=== PATIENT | female | born 1955 | race Caucasian/White ===

== ENCOUNTER 2021-08-23 14:26 | Inpatient (IN) ==
[2021-08-23] MEDS ORDERED: SODIUM CHLORIDE 0.9% 1000ML 1,000 ML IV ONE (14:59)
[2021-08-23 15:16] LABS: Basophils # (auto) 0.05 K/uL (0-0.2); Basophils % (auto) 0.6 %; Eosinophils # (auto) 0.22 K/uL (0-0.5); Eosinophils % (auto) 2.5 %; Hemoglobin 12.3 g/dL (12.0-16.0); Immature Granulocytes # (auto) 0.01 K/uL (0.00-0.02); Immature Granulocytes % (auto) 0.1 %; Lymphocytes # (auto) 2.62 K/uL (1.2-3.4); Lymphocytes % (auto) 30.2 %; Mean Corpuscular Hemoglobin 31.1 pg (25-34); Mean Corpuscular Hgb Conc 31.5 g/dL (32-36); Mean Corpuscular Volume 98.5 fL (80-100); Mean Platelet Volume 9.3 fL (7.4-10.4); Monocytes # (auto) 0.61 K/uL (0.11-0.59); Neutrophils # (auto) 5.16 K/uL (1.4-6.5); Neutrophils % (auto) 59.6 %; Platelet Count 280 K/uL (130-400); RDW Coefficient of Variation 12.9 % (11.5-14.5); RDW Standard Deviation 46.5 fL (36.4-46.3); Red Blood Count 3.96 M/uL (4.2-5.4); White Blood Count 8.67 K/uL (4.8-10.8)
[2021-08-23 15:24] LABS: Alanine Aminotransferase 28 U/L (12-78); Albumin Level 3.5 gm/dl (3.4-5.0); Aspartate Aminotransferase 15 U/L (15-37); BUN Creatinine Ratio 11.1 (10-20); Bilirubin Direct 0.2 mg/dl (0-0.2); Blood Urea Nitrogen 13 mg/dl (7-18); Calcium 8.5 mg/dl (8.5-10.1); Carbon Dioxide 30 mmol/L (21-32); Chloride 109 mmol/L (98-107); Creatinine Clr Calc Pharmacy 40.7 ml/min; Est GFR (African American) 57.4 ml/min; Est GFR (Non-African American) 49.6 ml/min; Glucose 89 mg/dl (70-99); Lipase 60 U/L (73-393); Magnesium 2.5 mg/dl (1.8-2.4); Potassium 4.1 mmol/L (3.5-5.1); Sodium 143 mmol/L (136-145)
[2021-08-23 15:26] LABS: Partial Thromboplastin Ratio 0.9; Partial Thromboplastin Time 24.2 Seconds (21.0-31.0); Prothrombin Time 10.3 Seconds (9.0-12.0)
[2021-08-23 15:33] LABS: Albumin Globulin Ratio 1.1 (0.9-2); Alkaline Phosphatase 74 U/L (45-117); Bilirubin,Total 0.7 mg/dl (0.2-1); Creatine Kinase 67 U/L (26-192); Globulin 3.1 gm/dl (2.5-4.0); Phosphorus 3.7 mg/dl (2.5-4.9); Total Protein 6.6 gm/dl (6.4-8.2); Troponin I < 0.015 ng/ml (0-0.045)
--- NOTE | 2021-08-23 15:44 | XRay Report ---
XR chest 1V portable HISTORY: 65 years-old Female Chest Pain . Acute atypical chest pain COMPARISON: None TECHNIQUE: Portable supine AP view of the chest FINDINGS: Cardiomediastinal and hilar silhouettes are within normal limits. No pneumothorax, pleural effusion, airspace consolidation or overt pulmonary edema. Degenerative changes of the shoulders and spine. Sub acute to chronic appearing lateral right-sided rib fractures. IMPRESSION: No acute process. ACT 112: Negative or not required by law. The above report was generated using voice recognition software. It may contain grammatical, syntax o r spelling errors. Electronically signed by: Anthony Blanton M.D. 08/23/2021 3:42 PM
[2021-08-23] MEDS ORDERED: OPTIRAY 320 125ml IV ONE (15:58)
--- NOTE | 2021-08-23 16:32 | CT Scan Report ---
CT head/brain wo con CLINICAL HISTORY: 65 years-old Female with confusion, R weakness, vasc dementia. Acutely altered men ramya status TECHNIQUE: Multiple axial CT images of the head were obtained without contrast. A dose lowering tech nique was utilized adhering to the principles of ALARA. COMPARISON: CTA head and neck of same day FINDINGS: No acute intracranial hemorrhage, midline shift, intracranial mass, hydrocephalus, territorial ischem ia or abnormal extra-axial collection. Extensive white matter hypodensities chronic appearing lacunar infarcts of the bloom radiata and basal ganglia. Senescent calcifications of the lentiform nuclei. Mildly motion degraded exam. The calvarium is intact. Prior bilateral lens repair. The paranasal sinuses, mastoid air cells, and m iddle ear cavities are clear. IMPRESSION: 1. No acute intracranial abnormality. 2. Extensive white matter hypodensities suggestive of chronic microvascular ischemic disease with chr onic appearing lacunar infarcts of the basal ganglia. ACT 112: Negative or not required by law. The above report was generated using voice recognition software. It may contain grammatical, syntax o r spelling errors. Electronically signed by: Anthony Blanton M.D. 08/23/2021 4:31 PM
--- NOTE | 2021-08-23 16:45 | CT Scan Report ---
CT angio neck with con, CT angio head w con CLINICAL HISTORY: 65 years-old Female with confusion, R weakness, vasc dementia. Acute confusion w ith strokelike symptoms COMPARISON STUDY: Head CT of same day TECHNIQUE: Following the IV administration of 120 mL of Optiray, CT angiogram of the head and neck wa s performed from the aortic arch to the skull base. Images are reviewed in the axial, sagittal, and c oronal planes. 3-D MIPS images are created and assessed. IV contrast was administered without complic ation. All measurements were calculated based on NASCET criteria. A dose lowering technique was util ized adhering to the principles of ALARA. CT DOSE: 994.53 mGy.cm FINDINGS: Three-vessel morphology of the thoracic aortic arch. Patency of the innominate and imaged subclavian arteries. The common carotid arteries are widely patent. Study is motion degraded. Moderate atheroscl erotic plaque of the left carotid bulb results in less than 50% luminal narrowing. The bilateral inte rnal carotid arteries are otherwise widely patent. Atherosclerotic plaque of the cavernous and suprac linoid segments. The middle and anterior cerebral arteries are patent. Dominant right vertebral arter y. The vertebral, basilar and posterior cerebral arteries are patent. origin of the left security coordinator ior cerebral artery. High-grade stenosis of the left P2 segment on image 80 series 5 with moderate angelito moni narrowing of the P2 segment right posterior cerebral artery on image 77. The cerebral venous si nuses are patent. There is no abnormal intracranial enhancement. Lung apices are clear. Unremarkable soft tissues. Degenerative changes of the spine. IMPRESSION: 1. High-grade stenosis of the P2 segment left posterior cerebral artery with moderate stenosis on the right. 2. Atherosclerotic plaque of the left carotid bulb results in less than 50% luminal narrowing. 3. Otherwise unremarkable CTA of the head and neck. ACT 112: Negative or not required by law. The above report was generated using voice recognition software. It may contain grammatical, syntax o r spelling errors. Electronically signed by: Anthony Blanton M.D. 08/23/2021 4:44 PM
[2021-08-23 16:51] LABS: Appearance Urine Cloudy (Clear); Bacteria Urine Automated Negative (Negative); Bilirubin Urine Negative (Negative); Blood Urine 3+ (Negative); Color Urine Yellow; Glucose Urine UA Negative (Negative); Ketones Urine Negative (Negative); Leukocyte Esterase Urine 1+ (Negative); Nitrite Urine Negative (Negative); RBC Urine Automated >30 /hpf (0-4); Specific Gravity Urine 1.021 (1.000-1.030); Urobilinogen Urine Negative (Negative); WBC Urine Automated >30 /hpf (0-5); pH Urine 8.5 (4.5-7.5)
[2021-08-23 16:57] LABS: Protein Urine 1+ (Negative)
[2021-08-23] MEDS ORDERED: cefTRIAXone SODIUM 1,000 MG/50 ML BAG IV STA (17:07)
--- NOTE | 2021-08-23 18:56 | History & Physical Report ---
Date of Service August 23, 2021 Assessment & Plan (1) UTI (urinary tract infection): (2) Ambulatory dysfunction: Plan: -admit to med/surg with tele -patient presenting from home after a fall and being found on the floor by her daughter -patient with underlying CADASIL and waxing and waning weakness. Currently no focal deficits noted on exam -UA suggetive of UTI. Does not appear septic -s/p ceftriaxone in the ED, continue with, adjust per culture results -PT/OT evals (3) CADASIL (cerebral autosomal dominant arteriopathy with subcortical infarcts and leukoencephalopathy): Plan: -has underlying weakness that waxes and wanes, seems to be close to baseline -head CT negative for acute findings. head/neck CTA shows High-grade stenosis of the P2 segment left posterior cerebral artery with moderate stenosis on the right, atherosclerotic plaque of the left carotid bulb results in less than 50% luminal narrowing -Given atherosclerotic changes noted on CTA head and neck, will start aspirin, increase home atorvastatin to 80 mg -continue amantadine, amitriptyline, bupropion, duloxetine -Neuro consult, input appreciated (4) Abnormal EKG: Plan: -EKG shows T wave inversions in the lateral leads, no prior available for comparison -No reports of chest pain, initial troponin negative -Starting aspirin and increasing statin as above -Continue serial cardiac enzymes (5) HTN (hypertension): Plan: -BP controlled, continue metoprolol (6) DVT prophylaxis: Plan: -SQ Lovenox Admission and Anticipated Discharge Date Admission Date: I have seen and examined the patient and have discussed the case with the provider above. I agree with the assessment and plan as stated. 65 yo F reporting a fall at home and "bladder pain" for many months. She believes she is in [facility] but is conversing quite well and is not exhibiting signs of delirium. She is ill-appearing and generally weak. She cannot sit up in bed without assistance and ambulates with a walker at baseline. Physical exam with normal heart and lungs and normal benign, soft, ND abdomen. Cont abx as above in addition to cardiac investigation with abnormal EKG and risk factors for CAD such as active smoking. She does also have high grade stenosis in her cerebral arteries ans athero plaque in her carotids. Appreciate neuro evaluation and recommendations in am. DO Charles History of Present Illness Chief Complaint: Weakness, fall Primary Care Provider: Yohannes Preciado 65-year-old female with PMH CADASIL, HTN, and other problems listed below who presents the ED for evaluation of weakness and fall. Patient has some underlying cognitive impairment and history is limited from her. She has difficulty focusing. She reports that she was trying to get something out of the refrigerator and while she was bending over, she fell to the floor. She reports that her daughter came home from work about 10 to 15 minutes later and found her on the floor. Patient has baseline weakness from underlying CADASIL and daughter felt like her weakness was worse than baseline. EMS was called and patient was brought to the ED for further evaluation. Patient reports she has been having some bladder pain and dysuria for the past few days. She denies fevers and chills. No abdominal pain, nausea, vomiting, diarrhea. She denies lightheadedness, dizziness, diaphoresis, syncopal events. No chest pain or shortness of breath. In the ED, patient is hemodynamically stable. UA is suggestive of UTI. Head CT shows chronic changes. Head and neck CTA shows high-grade stenosis of the P2 segment left posterior cerebral artery with moderate stenosis on the right, atherosclerotic plaque of the left carotid bulb results in less than 50% luminal narrowing. Patient was given IVF and IV ceftriaxone. Allergies Allergy/AdvReac Type Severity Reaction Status Date / Time amoxicillin Allergy Intermediate Rash Verified 08/23/21 16:56 Home Medications Medication Instructions Recorded Confirmed Type amantadine HCl 100 mg capsule 100 mg PO DAILY 08/23/21 08/23/21 History amitriptyline 50 mg tablet 50 mg PO HS 08/23/21 08/23/21 History atorvastatin 10 mg tablet 10 mg PO HS 08/23/21 08/23/21 History bupropion HCl 150 mg 24 hr tablet, 150 mg PO DAILY 08/23/21 08/23/21 History extended release cholecalciferol (vitamin D3) 125 125 mcg PO DAILY 08/23/21 08/23/21 History mcg (5,000 unit) capsule duloxetine 60 mg capsule,delayed 60 mg PO DAILY 08/23/21 08/23/21 History release magnesium oxide 500 mg capsule 500 mg PO DAILY 08/23/21 08/23/21 History metoprolol succinate 25 mg 25 mg PO DAILY 09/25/21 09/25/21 History tablet,extended release 24 hr Past Med/Surg History Medical History CADASIL (cerebral autosomal dominant arteriopathy with subcortical infarcts and leukoencephalopathy) Degenerative joint disease HTN (hypertension) Hyperthyroidism Spinal stenosis Surgical History No significant past surgical history Family History Other Family history non-contributory Social History (Updated 08/23/21 @ 18:53 by ANKIT Garcia) Smoking Status: Current every day smoker Hx Alcohol Use: No Review of Systems Review of Systems: ROS per HPI, all other systems reviewed and negative Physical Exam Constitutional: WD/WN, vitals as above Eyes: PERRL, conjunctivae normal, anicteric sclerae ENMT: external ear and nose normal, oropharynx normal Respiratory: normal respiratory effort, lungs clear to auscultation Cardiovascular: Rate/Rhythm: regular rate and regular rhythm Vessels: normal peripheral pulses Extremities: no edema Gastrointestinal (Abdomen): normal bowel sounds, soft, nontender, no hepatosplenomegaly Musculoskeletal: Extremities: no cyanosis and no clubbing strength 4/5 throughout Skin: no rashes, warm and dry Neurologic: moves all extremities and awake; no focal motor deficits Speech / Cognition: + abnormal speech (mild dysarthria, at baseline) Cranial Nerves: PERRL, normal accommodation, EOM intact bilaterally and normal facial strength Psychiatric: Orientation: alert, oriented to person and oriented to place; + not oriented to time Insight: + limited insight Results & Data Results & Data ([facility]) Vital Signs (Past 12 Hours) Vital Signs Temp Pulse Resp BP Pulse Ox 08/23/21 18:00 58 L 16 168/96 H 95 08/23/21 17:30 56 L 17 158/100 H 96 08/23/21 17:03 56 L 17 161/96 H 98 08/23/21 16:30 59 L 17 94 08/23/21 16:07 61 21 08/23/21 15:30 60 18 125/80 98 08/23/21 15:01 59 L 15 123/82 08/23/21 14:34 36.7 C 61 16 146/90 H 98 Laboratory Results Short CBC 08/23/21 Range/Units 14:34 WBC 8.67 (4.8-10.8) K/uL Hgb 12.3 (12.0-16.0) g/dL Hct 39.0 (37-47) % Plt Count 280 (130-400) K/uL BMP 08/23/21 14:34 Sodium 143 Potassium 4.1 Chloride 109 H Carbon Dioxide 30 BUN 13 Creatinine 1.17 Glucose 89 Calcium 8.5 Cardiac Enzymes 08/23/21 Range/Units 14:34 Total Creatine Kinase 67 (26-192) U/L Troponin I < 0.015 (0-0.045) ng/ml Liver Function 08/23/21 Range/Units 14:34 Total Bilirubin 0.7 (0.2-1) mg/dl Direct Bilirubin 0.2 (0-0.2) mg/dl AST 15 (15-37) U/L ALT 28 (12-78) U/L Alkaline Phosphatase 74 (45-117) U/L Albumin 3.5 (3.4-5.0) gm/dl Urine 08/23/21 Range/Units 16:35 Urine Color Yellow Urine Appearance Cloudy A (Clear) Urine pH 8.5 H (4.5-7.5) Ur Specific Hiller 1.021 (1.000-1.030) Urine Protein 1+ H (Negative) Urine Glucose (UA) Negative (Negative) Diagnostic Findings Chest X-Ray 08/23/21 15:00 XR chest 1V portable HISTORY: 65 years-old Female Chest Pain . Acute atypical chest pain COMPARISON: None TECHNIQUE: Portable supine AP view of the chest FINDINGS: Cardiomediastinal and hilar silhouettes are within normal limits. No pneumothorax, pleural effusion, airspace consolidation or overt pulmonary edema. Degenerative changes of the shoulders and spine. Subacute to chronic appearing lateral right-sided rib fractures. IMPRESSION: No acute process. ACT 112: Negative or not required by law. The above report was generated using voice recognition software. It may contain grammatical, syntax or spelling errors. Electronically signed by: Anthony Blanton M.D. 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 Acutely altered mental status TECHNIQUE: Multiple axial CT images of the head were obtained without contrast. A dose lowering technique was utilized adhering to the principles of ALARA. COMPARISON: CTA head and neck of same day FINDINGS: No acute intracranial hemorrhage, midline shift, intracranial mass, hydrocephalus, territorial ischemia or abnormal extra-axial collection. Extensive white matter hypodensities chronic appearing lacunar infarcts of the bloom radiata and basal ganglia. Senescent calcifications of the lentiform nuclei. Mildly motion degraded exam. The calvarium is intact. Prior bilateral lens repair. The paranasal sinuses, mastoid air cells, and middle ear cavities are clear. IMPRESSION: 1. No acute intracranial abnormality. 2. Extensive white matter hypodensities suggestive of chronic microvascular ischemic disease with chronic appearing lacunar infarcts of the basal ganglia. ACT 112: Negative or not required by law. The above report was generated using voice recognition software. It may contain grammatical, syntax or spelling errors. Electronically signed by: Anthony Blanton M.D. 08/23/2021 4:31 PM Head CTA 08/23/21 15:01 CT angio neck with con, CT angio head w con CLINICAL HISTORY: 65 years-old Female with confusion, R weakness, vasc dementia. Acute confusion with strokelike symptoms COMPARISON STUDY: Head CT of same day TECHNIQUE: Following the IV administration of 120 mL of Optiray, CT angiogram of the head and neck was performed from the aortic arch to the skull base. Images are reviewed in the axial, sagittal, and coronal planes. 3-D MIPS images are created and assessed. IV contrast was administered without complication. All measurements were calculated based on NASCET criteria. A dose lowering technique was utilized adhering to the principles of ALARA. CT DOSE: 994.53 mGy.cm FINDINGS: Three-vessel morphology of the thoracic aortic arch. Patency of the innominate and imaged subclavian arteries. The common carotid arteries are widely patent. Study is motion degraded. Moderate atherosclerotic plaque of the left carotid bulb results in less than 50% luminal narrowing. The bilateral internal carotid arteries are otherwise widely patent. Atherosclerotic plaque of the cavernous and supraclinoid segments. The middle and anterior cerebral arteries are patent. Dominant right vertebral artery. The vertebral, basilar and posterior cerebral arteries are patent. origin of the left posterior cerebral artery. High- grade stenosis of the left P2 segment on image 80 series 5 with moderate luminal narrowing of the P2 segment right posterior cerebral artery on image 77. The cerebral venous sinuses are patent. There is no abnormal intracranial enhancement. Lung apices are clear. Unremarkable soft tissues. Degenerative changes of the spine. IMPRESSION: 1. High-grade stenosis of the P2 segment left posterior cerebral artery with moderate stenosis on the right. 2. Atherosclerotic plaque of the left carotid bulb results in less than 50% luminal narrowing. 3. Otherwise unremarkable CTA of the head and neck. ACT 112: Negative or not required by law. The above report was generated using voice recognition software. It may contain grammatical, syntax or spelling errors. Electronically signed by: Anthony Blanton M.D. 08/23/2021 4:44 PM Neck CTA 08/23/21 15:01 CT angio neck with con, CT angio head w con CLINICAL HISTORY: 65 years-old Female with confusion, R weakness, vasc dementia. Acute confusion with strokelike symptoms COMPARISON STUDY: Head CT of same day TECHNIQUE: Following the IV administration of 120 mL of Optiray, CT angiogram of the head and neck was performed from the aortic arch to the skull base. Images are reviewed in the axial, sagittal, and coronal planes. 3-D MIPS images are created and assessed. IV contrast was administered without complication. All measurements were calculated based on NASCET criteria. A dose lowering technique was utilized adhering to the principles of ALARA. CT DOSE: 994.53 mGy.cm FINDINGS: Three-vessel morphology of the thoracic aortic arch. Patency of the innominate and imaged subclavian arteries. The common carotid arteries are widely patent. Study is motion degraded. Moderate atherosclerotic plaque of the left carotid bulb results in less than 50% luminal narrowing. The bilateral internal carotid arteries are otherwise widely patent. Atherosclerotic plaque of the cavernous and supraclinoid segments. The middle and anterior cerebral arteries are patent. Dominant right vertebral artery. The vertebral, basilar and posterior cerebral arteries are patent. origin of the left posterior cerebral artery. High- grade stenosis of the left P2 segment on image 80 series 5 with moderate luminal narrowing of the P2 segment right posterior cerebral artery on image 77. The cerebral venous sinuses are patent. There is no abnormal intracranial enhancement. Lung apices are clear. Unremarkable soft tissues. Degenerative changes of the spine. IMPRESSION: 1. High-grade stenosis of the P2 segment left posterior cerebral artery with moderate stenosis on the right. 2. Atherosclerotic plaque of the left carotid bulb results in less than 50% luminal narrowing. 3. Otherwise unremarkable CTA of the head and neck. ACT 112: Negative or not required by law. The above report was generated using voice recognition software. It may contain grammatical, syntax or spelling errors. Electronically signed by: Anthony Blanton M.D. 08/23/2021 4:44 PM Code Status & VTE Plan VTE Prophylaxis Plan VTE Prophylaxis will be ordered: Yes
--- NOTE | 2021-08-23 21:08 | Emergency Department Note ---
Impression & Plan CADASIL (cerebral autosomal dominant arteriopathy with subcortical infarcts and leukoencephalopathy), UTI (urinary tract infection), Ambulatory dysfunction, Fall ED Provider Note NAME: ANGUS ARROYO AGE: 65 SEX: F ARRIVES VIA: Ambulance INFORMANT: Patient, ED PROVIDER(S): Devin Green MD CHIEF COMPLAINT: Fall, Stroke symptoms x 2 days PLAN: Disposition: Admit MEDICAL DECISION MAKING: The patient is a pleasant 65 y/o woman with a pmhx of CADASIL who presents to the emergency department accompanied by her daughter for evaluation after an unwittnessed fall when she found her mother on the ground this morning in the setting of the patient's daughter reporting increased right sided weakness from baseline right sided weakness and worsened ambulatory dysfunction, which she reports occurs when she has flares of her stroke symptoms 2/2 to her CADASIL. She reports with follows with Dr. Perez, [facility] neurology. They deny any fevers, chills, cough congestion, n/v/d. She reports having increased bladder pain for the past couple of days she feels may be a UTI. On arrival the patient is in NAD, AFVSS. She appears clinically dry. Speech is mild dysarthric. RUE/RLE 4/5 strength. LUE/LLE 4+/5 strength. Mild suprapubic te nderness. EKG without overt acute ischemia. CXR negative for acute cardiopulmonary process . WBC, H/H, platelets wnl. Chemistry without acidosis. Electrolytes unremarkable. LFTs without significant abnormality. Troponin negative/undetectable. TSH wnl. UA is suspicious for infection. CTX ordered. Covid-[address] head demonstrates extensive white matter hypodensities suggestive of chronic microvascular ischemic disease with chronic appearing lacunar infarcts of the basal ganglia. CTA fo head and neck demonstrates high-grade stenosis of the P2 segment left posterior cerebral artery with moderate stenosis on the right. Left carotid bulb with less than 50% luminal narrowing. Given the patient's worsening neurologic symptoms from baseline resulting in her unwittness fall the patient and her daughter agree with plan for admission. Case was discussed with [place] Nieves, with Dr. Charles Lujan hospitalist who will evaluate the patient for admission. Triage Nursing notes reviewed and agree them. Prior medical records reviewed Vital Signs: reviewed and remarkable for no significant abnormalities Differential diagnosis: Infection, dehydration, metabolic abnormality, hypo/hyperglycemia, electrolyte disturbance, anemia, hypoxia, cardiac sources, intracerebral event, toxicologic, neurologic, as well as other pathologies. ER treatment provided: See below. Diagnostics interpreted by me: ECG: NSR, 60 bpm, no ectopy, no overt ST elevation or depression. Cardiac Monitoring: An order for continuous cardiac monitoring was placed and demonstrated NSR, 60 bpm, no ectopy. Laboratory studies: See below Imaging studies: See below Consultation(s): Case was discussed with Le Nieves, with Dr. Charles Lujan hospitalist who will evaluate the patient for admission. HPI: The patient is a pleasant 65 y/o woman with a pmhx of CADASIL who presents to the emergency department accompanied by her daughter for evaluation after an unwittnessed fall when she found her mother on the ground this morning in the setting of the patient's daughter reporting increased right sided weakness from baseline right sided weakness and worsened ambulatory dysfunction, which she rep orts occurs when she has flares of her stroke symptoms 2/2 to her CADASIL. She reports with follows with Dr. Perez, [facility] neurology. They deny any fevers, chills, cough congestion, n/v/d. She reports having increased bladder pain for the past couple of days she feels may be a UTI. ROS: See above HPI for pertinent positives & negatives. A total of 10 systems reviewed and were otherwise negative. PAST MEDICAL HISTORY:See Below PAST SURGICAL HISTORY:See Below FAMILY HISTORY:See Below SOCIAL HISTORY:See Below HOME MEDICATIONS:See Below ALLERGIES:See Below VITALS:See Below PHYSICAL EXAMINATION: GENERAL: Awake, alert, fatigued-appearing, in no distress HENT: Normocephalic, atraumatic. Oropharynx with dry mucous membranes and otherwise unremarkable. EYES: Normal conjunctiva. Sclera non-icteric. EOMI. No nystamgus. PEARRL. NECK: Supple. No nuchal rigidity. FROM. No JVD. RESPIRATORY: Clear to auscultation. CARDIAC: Regular rate, normal rhythm. Extremities warm and well perfused. Pulses equal. ABDOMEN: Soft, non-distended. Mild suprapubic tenderness. No rebound or guarding. No masses. RECTAL: Deferred. MUSCULOSKELETAL: Chest examination reveals no tenderness. The back is symmetrical on inspection without obvious abnormality. There is no CVA tenderness to palpation. No joint edema. LOWER EXTREMITIES: Calves are equal size bilaterally and non-tender. No edema. No discoloration. NEURO: Speech is mild dysarthric. RUE/RLE 4/5 strength. LUE/LLE 4+/5 strength. SKIN: No rash or jaundice noted. Devin Green MD Past Med/Surg History Medical History CADASIL (cerebral autosomal dominant arteriopathy with subcortical infarcts and leukoencephalopathy) Degenerative joint disease HTN (hypertension) Hyperthyroidism Spinal stenosis Surgical History No significant past surgical history Family History Other Family history non-contributory Social History Smoking Status: Current every day smoker Hx Alcohol Use: No Allergies Allergies Allergy/AdvReac Type Severity Reaction Status Date / Time amoxicillin Allergy Intermediate Rash Verified 08/23/21 16:56 Home Meds Home Medications Medication Instructions Recorded Confirmed amantadine HCl 100 mg capsule 100 mg PO DAILY 08/23/21 08/23/21 amitriptyline 50 mg tablet 50 mg PO HS 08/23/21 08/23/21 atorvastatin 10 mg tablet 10 mg PO HS 08/23/21 08/23/21 bupropion HCl 150 mg 24 hr tablet, 150 mg PO DAILY 08/23/21 08/23/21 extended release cholecalciferol (vitamin D3) 125 125 mcg PO DAILY 08/23/21 08/23/21 mcg (5,000 unit) capsule duloxetine 60 mg capsule,delayed 60 mg PO DAILY 08/23/21 08/23/21 release magnesium oxide 500 mg capsule 500 mg PO DAILY 08/23/21 08/23/21 metoprolol succinate 25 mg 25 mg PO DAILY 08/23/21 08/23/21 tablet,extended release 24 hr Results & Data (ED) Vital Signs Vital Signs - 24 hr 08/23/21 14:34 08/23/21 15:01 08/23/21 15:30 Temperature 36.7 C Temperature Source Oral Pulse Rate 61 59 L 60 Pulse Rate from SpO2 Sensor 60 Pulse Rhythm Respiratory Rate 16 15 18 Respiratory Effort / Characteristics Non-Labored Respiratory Depth Normal Blood Pressure 146/90 H 123/82 125/80 Blood Pressure Mean 108 95 95 Pulse Oximetry 98 98 Oxygen Delivery Method Room Air Sepsis Recent Fever Within 48 Hours No Sepsis New/Unexplained Change in Mental Status No Sepsis Action Taken by Nursing No Action Required 08/23/21 15:37 08/23/21 16:07 08/23/21 16:30 Temperature Temperature Source Pulse Rate 61 59 L Pulse Rate from SpO2 Sensor 58 L Pulse Rhythm Regular Respiratory Rate 21 17 Respiratory Effort / Characteristics Respiratory Depth Blood Pressure Blood Pressure Mean Pulse Oximetry 94 Oxygen Delivery Method Room Air Sepsis Recent Fever Within 48 Hours Sepsis New/Unexplained Change in Mental Status Sepsis Action Taken by Nursing 08/23/21 17:03 08/23/21 17:30 08/23/21 18:00 Temperature Temperature Source Pulse Rate 56 L 56 L 58 L Pulse Rate from SpO2 Sensor 57 L 56 L 58 L Pulse Rhythm Respiratory Rate 17 17 16 Respiratory Effort / Characteristics Respiratory Depth Blood Pressure 161/96 H 158/100 H 168/96 H Blood Pressure Mean 117 119 120 Pulse Oximetry 98 96 95 Oxygen Delivery Method Sepsis Recent Fever Within 48 Hours Sepsis New/Unexplained Change in Mental Status Sepsis Action Taken by Nursing Laboratory Data Result diagrams: 08/23/21 14:34 08/23/21 14:34 Lab Results 08/23/21 08/23/21 08/23/21 Range/Units 14:34 14:34 14:34 WBC 8.67 (4.8-10.8) K/uL RBC 3.96 L (4.2-5.4) M/uL Hgb 12.3 (12.0-16.0) g/dL Hct 39.0 (37-47) % MCV 98.5 (80-100) fL MCH 31.1 (25-34) pg MCHC 31.5 L (32-36) g/dL RDW Std Deviation 46.5 H (36.4-46.3) fL RDW Coeff of Kong 12.9 (11.5-14.5) % Plt Count 280 (130-400) K/uL MPV 9.3 (7.4-10.4) fL Immature Gran % (Auto) 0.1 % Neut % (Auto) 59.6 % Lymph % (Auto) 30.2 % Blaine % (Auto) 7.0 % Eos % (Auto) 2.5 % Baso % (Auto) 0.6 % Neut # (Auto) 5.16 (1.4-6.5) K/uL Lymph # (Auto) 2.62 (1.2-3.4) K/uL Blaine # (Auto) 0.61 H (0.11-0.59) K/uL Eos # (Auto) 0.22 (0-0.5) K/uL Baso # (Auto) 0.05 (0-0.2) K/uL Immature Gran # (Auto) 0.01 (0.00-0.02) K/uL PT 10.3 (9.0-12.0) Seconds INR 1.0 (0.9-1.1) APTT 24.2 (21.0-31.0) Seconds PTT Ratio 0.9 Sodium 143 (136-145) mmol/L Potassium 4.1 (3.5-5.1) mmol/L Chloride 109 H (98-107) mmol/L Carbon Dioxide 30 (21-32) mmol/L Anion Gap 4.0 (3-11) BUN 13 (7-18) mg/dl Creatinine 1.17 (0.6-1.2) mg/dl Est Cr Clr Drug Dosing 40.7 ml/min Est GFR ( Amer) 57.4 ml/min Est GFR (Non-Af Amer) 49.6 ml/min BUN/Creatinine Ratio 11.1 (10-20) Glucose 89 (70-99) mg/dl POC Glucose (70-99) mg/dl Calcium 8.5 (8.5-10.1) mg/dl Phosphorus 3.7 (2.5-4.9) mg/dl Magnesium 2.5 H (1.8-2.4) mg/dl Total Bilirubin 0.7 (0.2-1) mg/dl Direct Bilirubin 0.2 (0-0.2) mg/dl AST 15 (15-37) U/L ALT 28 (12-78) U/L Alkaline Phosphatase 74 (45-117) U/L Total Creatine Kinase 67 (26-192) U/L Troponin I < 0.015 (0-0.045) ng/ml Total Protein 6.6 (6.4-8.2) gm/dl Albumin 3.5 (3.4-5.0) gm/dl Globulin 3.1 (2.5-4.0) gm/dl Albumin/Globulin Ratio 1.1 (0.9-2) Lipase 60 L (73-393) U/L TSH 1.320 (0.300-4.500) uIu/ml Urine Color Urine Appearance (Clear) Urine pH (4.5-7.5) Ur Specific [place] (1.000-1.030) Urine Protein (Negative) Urine Glucose (UA) (Negative) Urine Ketones (Negative) Urine Blood (Negative) Urine Nitrite (Negative) Urine Bilirubin (Negative) Urine Urobilinogen (Negative) Ur Leukocyte Esterase (Negative) Urine WBC (Auto) (0-5) /hpf Urine RBC (Auto) (0-4) /hpf U Hyaline Cast (Auto) (0-5) /lpf U Epithel Cells (Auto) (0-5) /lpf Urine Bacteria (Auto) (Negative) COVID-19 Eval Order SARS-CoV-2 (PCR) (Negative) 08/23/21 08/23/21 08/23/21 Range/Units 14:40 14:41 15:37 WBC (4.8-10.8) K/uL RBC (4.2-5.4) M/uL Hgb (12.0-16.0) g/dL Hct (37-47) % MCV (80-100) fL MCH (25-34) pg MCHC (32-36) g/dL RDW Std Deviation (36.4-46.3) fL RDW Coeff of Kong (11.5-14.5) % Plt Count (130-400) K/uL MPV (7.4-10.4) fL Immature Gran % (Auto) % Neut % (Auto) % Lymph % (Auto) % Blaine % (Auto) % Eos % (Auto) % Baso % (Auto) % Neut # (Auto) (1.4-6.5) K/uL Lymph # (Auto) (1.2-3.4) K/uL Blaine # (Auto) (0.11-0.59) K/uL Eos # (Auto) (0-0.5) K/uL Baso # (Auto) (0-0.2) K/uL Immature Gran # (Auto) (0.00-0.02) K/uL PT (9.0-12.0) Seconds INR (0.9-1.1) APTT (21.0-31.0) Seconds PTT Ratio Sodium (136-145) mmol/L Potassium (3.5-5.1) mmol/L Chloride (98-107) mmol/L Carbon Dioxide (21-32) mmol/L Anion Gap (3-11) BUN (7-18) mg/dl Creatinine (0.6-1.2) mg/dl Est Cr Clr Drug Dosing ml/min Est GFR ( Amer) ml/min Est GFR (Non-Af Amer) ml/min BUN/Creatinine Ratio (10-20) Glucose (70-99) mg/dl POC Glucose 88 91 (70-99) mg/dl Calcium (8.5-10.1) mg/dl Phosphorus (2.5-4.9) mg/dl Magnesium (1.8-2.4) mg/dl Total Bilirubin (0.2-1) mg/dl Direct Bilirubin (0-0.2) mg/dl AST (15-37) U/L ALT (12-78) U/L Alkaline Phosphatase (45-117) U/L Total Creatine Kinase (26-192) U/L Troponin I (0-0.045) ng/ml Total Protein (6.4-8.2) gm/dl Albumin (3.4-5.0) gm/dl Globulin (2.5-4.0) gm/dl Albumin/Globulin Ratio (0.9-2) Lipase (73-393) U/L TSH (0.300-4.500) uIu/ml Urine Color Urine Appearance (Clear) Urine pH (4.5-7.5) Ur Specific [place] (1.000-1.030) Urine Protein (Negative) Urine Glucose (UA) (Negative) Urine Ketones (Negative) Urine Blood (Negative) Urine Nitrite (Negative) Urine Bilirubin (Negative) Urine Urobilinogen (Negative) Ur Leukocyte Esterase (Negative) Urine WBC (Auto) (0-5) /hpf Urine RBC (Auto) (0-4) /hpf U Hyaline Cast (Auto) (0-5) /lpf U Epithel Cells (Auto) (0-5) /lpf Urine Bacteria (Auto) (Negative) COVID-19 Eval Order Covid19 at [facility] SARS-CoV-2 (PCR) (Negative) 08/23/21 08/23/21 Range/Units 15:37 16:35 WBC (4.8-10.8) K/uL RBC (4.2-5.4) M/uL Hgb (12.0-16.0) g/dL Hct (37-47) % MCV (80-100) fL MCH (25-34) pg MCHC (32-36) g/dL RDW Std Deviation (36.4-46.3) fL RDW Coeff of Kong (11.5-14.5) % Plt Count (130-400) K/uL MPV (7.4-10.4) fL Immature Gran % (Auto) % Neut % (Auto) % Lymph % (Auto) % [place]aine % (Auto) % Eos % (Auto) % Baso % (Auto) % Neut # (Auto) (1.4-6.5) K/uL Lymph # (Auto) (1.2-3.4) K/uL [place]aine # (Auto) (0.11-0.59) K/uL Eos # (Auto) (0-0.5) K/uL Baso # (Auto) (0-0.2) K/uL Immature Gran # (Auto) (0.00-0.02) K/uL PT (9.0-12.0) Seconds INR (0.9-1.1) APTT (21.0-31.0) Seconds PTT Ratio Sodium (136-145) mmol/L Potassium (3.5-5.1) mmol/L Chloride (98-107) mmol/L Carbon Dioxide (21-32) mmol/L Anion Gap (3-11) BUN (7-18) mg/dl Creatinine (0.6-1.2) mg/dl Est Cr Clr Drug Dosing ml/min Est GFR ( Amer) ml/min Est GFR (Non-Af Amer) ml/min BUN/Creatinine Ratio (10-20) Glucose (70-99) mg/dl POC Glucose (70-99) mg/dl Calcium (8.5-10.1) mg/dl Phosphorus (2.5-4.9) mg/dl Magnesium (1.8-2.4) mg/dl Total Bilirubin (0.2-1) mg/dl Direct Bilirubin (0-0.2) mg/dl AST (15-37) U/L ALT (12-78) U/L Alkaline Phosphatase (45-117) U/L Total Creatine Kinase (26-192) U/L Troponin I (0-0.045) ng/ml Total Protein (6.4-8.2) gm/dl Albumin (3.4-5.0) gm/dl Globulin (2.5-4.0) gm/dl Albumin/Globulin Ratio (0.9-2) Lipase (73-393) U/L TSH (0.300-4.500) uIu/ml Urine Color Yellow Urine Appearance Cloudy A (Clear) Urine pH 8.5 H (4.5-7.5) Ur Specific [place] 1.021 (1.000-1.030) Urine Protein 1+ H (Negative) Urine Glucose (UA) Negative (Negative) Urine Ketones Negative (Negative) Urine Blood 3+ H (Negative) Urine Nitrite Negative (Negative) Urine Bilirubin Negative (Negative) Urine Urobilinogen Negative (Negative) Ur Leukocyte Esterase 1+ H (Negative) Urine WBC (Auto) >30 H (0-5) /hpf Urine RBC (Auto) >30 H (0-4) /hpf U Hyaline Cast (Auto) 1-5 (0-5) /lpf U Epithel Cells (Auto) 10-20 H (0-5) /lpf Urine Bacteria (Auto) Negative (Negative) COVID-19 Eval Order SARS-CoV-2 (PCR) NEGATIVE (Negative) Administered Medications Amitriptyline HCl (Amitriptyline Hcl 50 Mg Tab) 50 mg PO HS YANDEL Stop: 09/22/21 21:03 Last Admin: 08/23/21 23:01 Dose: 50 mg Documented by: [id number] Atorvastatin Calcium (Atorvastatin 40 Mg Tab) 80 mg PO HS YANDEL Stop: 09/22/21 21:03 Last Admin: 08/23/21 23:00 Dose: 80 mg Documented by: [id number] Enoxaparin Sodium (Enoxaparin Inj 40 Mg/0.4 Ml Syr) 40 mg SQ HS YANDEL Stop: 09/22/21 21:29 Last Admin: 08/23/21 23:00 Dose: 40 mg Documented by: [id number] Sodium Chloride (Nss 1000ml) 1,000 mls @ 80 mls/hr IV .[id number] YANDEL Stop: 09/22/21 21:03 Last Admin: 08/23/21 23:03 Dose: 80 mls/hr Documented by: [id number] Discontinued Medications Aspirin (Aspirin 325 Mg Ectab) 325 mg PO ONE ONE Stop: 08/23/21 21:31 Last Admin: 08/23/21 23:01 Dose: 325 mg Documented by: [id number] Sodium Chloride (Nss 1000ml) 1,000 mls @ 999 mls/hr IV .[id number] ONE Stop: 08/23/21 15:59 Last Infusion: 08/23/21 16:51 Dose: 0 mls/hr Documented by: [id number] Admin: 08/23/21 15:40 Dose: 999 mls/hr Documented by: [id number] Ceftriaxone Sodium (Rocephin) 1,000 mg in 50 mls @ 100 mls/hr IV NOW STA Stop: 08/23/21 17:36 Last Infusion: 08/23/21 18:02 Dose: 0 mls/hr Documented by: [id number] Admin: 08/23/21 17:26 Dose: 100 mls/hr Documented by: [id number] Ioversol (Optiray 320 125ml) 120 ml IV ONCE ONE Stop: 08/23/21 15:59 Last Admin: 08/23/21 15:59 Dose: 120 ml Documented by: [id number] Imaging Data Radiologist's Impression: Chest X-Ray 08/23/21 15:00 XR chest 1V portable HISTORY: 65 years-old Female Chest Pain . Acute atypical chest pain COMPARISON: None TECHNIQUE: Portable supine AP view of the chest FINDINGS: Cardiomediastinal and hilar silhouettes are within normal limits. No pneum othorax, pleural effusion, airspace consolidation or overt pulmonary edema. Degenerative changes of the shoulders and spine. Subacute to chronic appearing lateral right-sided rib fractures. IMPRESSION: No acute process. ACT 112: Negative or not required by law. The above report was generated using voice recognition software. It may contain grammatical, syntax or spelling errors. Electronically signed by: Anthony Blanton M.D. 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 Acutely altered mental status TECHNIQUE: Multiple axial CT images of the head were obtained without contrast. A dose lowering technique was utilized adhering to the principles of ALARA. COMPARISON: CTA head and neck of same day FINDINGS: No acute intracranial hemorrhage, midline shift, intracranial mass, hydrocephalus, territorial ischemia or abnormal extra-axial collection. Extensive white matter hypodensities chronic appearing lacunar infarcts of the bloom radiata and basal ganglia. Senescent calcifications of the lentiform nuclei. Mildly motion degraded exam. The calvarium is intact. Prior bilateral lens repair. The paranasal sinuses, mastoid air cells, and middle ear cavities are clear. IMPRESSION: 1. No acute intracranial abnormality. 2. Extensive white matter hypodensities suggestive of chronic microvascular ischemic disease with chronic appearing lacunar infarcts of the basal ganglia. ACT 112: Negative or not required by law. The above report was generated using voice recognition software. It may contain grammatical, syntax or spelling errors. Electronically signed by: Anthony Blanton M.D. 08/23/2021 4:31 PM Head CTA 08/23/21 15:01 CT angio neck with con, CT angio head w con CLINICAL HISTORY: 65 years-old Female with confusion, R weakness, vasc dementia. Acute confusion with strokelike symptoms COMPARISON STUDY: Head CT of same day TECHNIQUE: Following the IV administration of 120 mL of Optiray, CT angiogram of the head and neck was performed from the aortic arch to the skull base. Images are reviewed in the axial, sagittal, and coronal planes. 3-D MIPS images are created and assessed. IV contrast was administered without complication. All measurements were calculated based on NASCET criteria. A dose lowering technique was utilized adhering to the principles of ALARA. CT DOSE: 994.53 mGy.cm FINDINGS: Three-vessel morphology of the thoracic aortic arch. Patency of the innominate and imaged subclavian arteries. The common carotid arteries are widely patent. Study is motion degraded. Moderate atherosclerotic plaque of the left carotid bulb results in less than 50% luminal narrowing. The bilateral internal carotid arteries are otherwise widely patent. Atherosclerotic plaque of the cavernous and supraclinoid segments. The middle and anterior cerebral arteries are patent. Dominant right vertebral artery. The vertebral, basilar and posterior cerebral arteries are patent. origin of the left posterior cerebral artery. High- grade stenosis of the left P2 segment on image 80 series 5 with moderate luminal narrowing of the P2 segment right posterior cerebral artery on image 77. The cerebral venous sinuses are patent. There is no abnormal intracranial enhancement. Lung apices are clear. Unremarkable soft tissues. Degenerative changes of the spine. IMPRESSION: 1. High-grade stenosis of the P2 segment left posterior cerebral artery with moderate stenosis on the right. 2. Atherosclerotic plaque of the left carotid bulb results in less than 50% luminal narrowing. 3. Otherwise unremarkable CTA of the head and neck. ACT 112: Negative or not required by law. The above report was generated using voice recognition software. It may contain grammatical, syntax or spelling errors. Electronically signed by: Anthony Blanton M.D. 08/23/2021 4:44 PM Neck CTA 08/23/21 15:01 CT angio neck with con, CT angio head w con CLINICAL HISTORY: 65 years-old Female with confusion, R weakness, vasc dementia. Acute confusion with strokelike symptoms COMPARISON STUDY: Head CT of same day TECHNIQUE: Following the IV administration of 120 mL of Optiray, CT angiogram of the head and neck was performed from the aortic arch to the skull base. Images are reviewed in the axial, sagittal, and coronal planes. 3-D MIPS images are created and assessed. IV contrast was administered without complication. All measurements were calculated based on NASCET criteria. A dose lowering technique was utilized adhering to the principles of ALARA. CT DOSE: 994.53 mGy.cm FINDINGS: Three-vessel morphology of the thoracic aortic arch. Patency of the innominate and imaged subclavian arteries. The common carotid arteries are widely patent. Study is motion degraded. Moderate atherosclerotic plaque of the left carotid bulb results in less than 50% luminal narrowing. The bilateral internal carotid arteries are otherwise widely patent. Atherosclerotic plaque of the cavernous and supraclinoid segments. The middle and anterior cerebral arteries are patent. Dominant right vertebral artery. The vertebral, basilar and posterior cerebral arteries are patent. origin of the left posterior cerebral artery. High- grade stenosis of the left P2 segment on image 80 series 5 with moderate luminal narrowing of the P2 segment right posterior cerebral artery on image 77. The cerebral venous sinuses are patent. There is no abnormal intracranial enhancement. Lung apices are clear. Unremarkable soft tissues. Degenerative changes of the spine. IMPRESSION: 1. High-grade stenosis of the P2 segment left posterior cerebral artery with moderate stenosis on the right. 2. Atherosclerotic plaque of the left carotid bulb results in less than 50% luminal narrowing. 3. Otherwise unremarkable CTA of the head and neck. ACT 112: Negative or not required by law. The above report was generated using voice recognition software. It may contain grammatical, syntax or spelling errors. Electronically signed by: Anthony Blanton M.D. 08/23/2021 4:44 PM Discharge Plan Visit Data Chief Complaint: Neuro Symptoms/Deficit Stated Complaint: Stroke like sx x2 days ED Provider: Devin Green Discharge Problem: CADASIL (cerebral autosomal dominant arteriopathy with subcortical infarcts and leukoencephalopathy), UTI (urinary tract infection), Ambulatory dysfunction, Fall Patient Disposition: Admitted As Inpatient Discharge Instructions Interventions: ED Discharge Assessment Last Done: 08/23/21 19:47 Discharge Problem: UTI (urinary tract infection) Qualifiers: Urinary tract infection type: acute cystitis Hematuria presence: without hematuria Qualified Code(s): N30.00 - Acute cystitis without hematuria Fall Qualifiers: Encounter type: initial encounter Qualified Code(s): W19.XXXA - Unspecified fall, initial encounter
[2021-08-23] MEDS ORDERED: ASPIRIN 325 MG ECTAB PO ONE (21:30)
[2021-08-23] MEDS: ATORVASTATIN 40 MG TAB PO SCH (23:00)
[2021-08-23] MEDS: ENOXAPARIN INJ 40 MG/0.4 ML SYR SQ SCH (23:00)
[2021-08-23] MEDS: AMITRIPTYLINE HCL 50 MG TAB PO SCH (23:01)
[2021-08-23] MEDS: SODIUM CHLORIDE 0.9% 1000ML 1,000 ML IV SCH (23:03)
[2021-08-24 04:08] LABS: Hematocrit (blood only) 38.4 % (37-47); Hemoglobin 12.4 g/dL (12.0-16.0); Mean Corpuscular Hemoglobin 30.6 pg (25-34); Mean Corpuscular Hgb Conc 32.3 g/dL (32-36); Mean Corpuscular Volume 94.8 fL (80-100); Mean Platelet Volume 9.3 fL (7.4-10.4); Platelet Count 266 K/uL (130-400); RDW Coefficient of Variation 12.8 % (11.5-14.5); RDW Standard Deviation 44.6 fL (36.4-46.3); Red Blood Count 4.05 M/uL (4.2-5.4); White Blood Count 8.62 K/uL (4.8-10.8)
[2021-08-24 05:11] LABS: BUN Creatinine Ratio 10.4 (10-20); Blood Urea Nitrogen 11 mg/dl (7-18); Calcium 8.5 mg/dl (8.5-10.1); Carbon Dioxide 28 mmol/L (21-32); Chloride 110 mmol/L (98-107); Creatinine Clr Calc Pharmacy 44.9 ml/min; Est GFR (African American) 64.7 ml/min; Est GFR (Non-African American) 55.8 ml/min; Glucose 82 mg/dl (70-99); Potassium 3.4 mmol/L (3.5-5.1); Sodium 142 mmol/L (136-145); Troponin I < 0.015 ng/ml (0-0.045)
[2021-08-24] MEDS ORDERED: POTASSIUM CHLORIDE CRTAB 20 MEQ TABCR PO STA (07:45)
[2021-08-24] MEDS: DULoxetine HCL 60 MG CAP PO SCH (08:18)
[2021-08-24] MEDS: METOPROLOL SUCC 25MG EXT REL TAB PO SCH (08:18)
[2021-08-24] MEDS: AMANTADINE HCL 100 MG CAPSULE PO SCH (08:18)
[2021-08-24] MEDS: ASPIRIN 81 MG ECTAB PO SCH (08:18)
[2021-08-24] MEDS: buPROPion XL 150 MG TABCR PO SCH (08:18)
[2021-08-24] MEDS: SODIUM CHLORIDE 0.9% 1000ML 1,000 ML IV SCH ×2 (10:42→21:46)
--- NOTE | 2021-08-24 15:04 | Hospitalist Progress Note ---
Date of Service August 24, 2021 Assessment & Plan (1) TIA (transient ischemic attack): (2) CADASIL (cerebral autosomal dominant arteriopathy with subcortical infarcts and leukoencephalopathy): (3) Fall: Plan: 65-year-old female with PMH of mis-diagnosis of MS/treatment for it x15 years until 3 years ago when she was diagnosed with CADASIL, recurrent TIA every 4 to 6-month [last one 3 to 4 months ago per her daughter] due to CADASIL, HTN, ambulatory dysfunction, recurrent UTIs, hypothyroidism, spinal stenosis presented 08/23 by ambulance for evaluation of weakness and fall. Per her daughter, her baseline is mildly demented, moderately independent, able to get around mostly. She has continence issues since 10 years. Patient has baseline weakness from underlying CADASIL and daughter felt like her weakness was worse than baseline. She is being managed for the following: #. Metabolic encephalopathy #. Recurrent TIA/possible current TIA secondary to cerebral autosomal dominant arteriopathy with subcortical infarcts and leukoencephalopathy [CADASIL] #. UTI Patient not at her baseline mentation per her daughter, likely secondary to combination of TIA and UTI UA suggestive of UTI, patient reports bladder pain and dysuria for few days [employer]. Continue with ceftriaxone 08/23 Was misdiagnosed and treated for MS for 15 years until 3 years ago when she was diagnosed with CADASIL -has recurrent TIA every 4 to 6 months per her daughter. Admitting Head CT shows chronic changes. Admitting head and neck CTA shows high-grade stenosis of the P2 segment left posterior cerebral artery with moderate stenosis on the right, atherosclerotic plaque of the left carotid bulb results in less than 50% luminal narrowing Neurology on board: get MRI, await further recommendations Patient is started on aspirin and home atorvastatin increased to 80 mg. Continue supportive care, neurochecks. #. Ambulatory dysfunction Due to incurable neurological condition at her baseline PT/OT, await recommendation Recently worsened from her baseline #. HTN (hypertension): -BP controlled, continue metoprolol #. DVT prophylaxis: Subcu Lovenox Disposition: PT/OT recommending SNF. 08/24 conversation with the daughter over the phone (Chantel [phone]) to get information about her mother and discussed the plan of care. She voiced un derstanding and was agreeable. Admission and Anticipated Discharge Date Admission Date: August 23, 2021 Subjective Patient was lying in bed, in minimal distress, slightly restless, AOx3, room air. Patient reports no chest pain/headache/dizziness/other review of symptoms. Physical Exam Physical Exam: GENERAL: Alert and oriented x3. Minimal restless/stress, on RA. HEENT: No pallor, no icterus. Pupils equal, round and reactive to light. Oral mucosa moist. NECK: No JVD, no neck masses. HEART: S1 and S2 heard. Regular rate and rhythm. No murmur, no gallop. RESPIRATORY SYSTEM: Normal AP diameter. No accessory muscle use. No wheezing, no crackles. ABDOMEN: Soft, bowel sounds present, nontender, no distention. CENTRAL NERVOUS SYSTEM: No facial droop. Speech is clear. Obeys simple commands. Moves extremities. EXTREMITIES: No edema, no erythema seen. Results & Data Results & Data ([facility]) Vital Signs (Past 12 Hours) Vital Signs Temp Pulse Pulse Pulse Resp BP Pulse Ox 08/24/21 08:55 56 L 08/24/21 06:51 36.9 C 60 18 150/76 H 96 08/24/21 04:30 56 L 08/24/21 03:13 36.5 C 58 L 18 140/84 94 (1) Fall Encounter type: initial encounter Qualified Code(s): W19.XXXA - Unspecified fall, initial encounter
--- NOTE | 2021-08-24 16:08 | Magnetic Resonance Report ---
MRI OF THE BRAIN WITHOUT IV CONTRAST CLINICAL HISTORY: Strokelike symptoms. Right-sided weakness. Change in mental status. Ambulatory dysf unction. COMPARISON STUDY: CT of the brain dated 08/23/2021. TECHNIQUE: MRI of the brain was performed utilizing various T1 and T2-weighted sequences in the axial , sagittal, and coronal planes. IV contrast was not administered for this examination. FINDINGS: Brain parenchyma: There is age-related involutional change noting advanced confluent subcortical and periventricular microangiopathic disease. There is a punctate focus of restricted diffusion in the le ft posterior frontal cortex seen on image #17, likely representing a tiny acute to subacute infarct. No additional foci of restricted diffusion are identified. Small chronic lacunar infarcts are noted i n the right caudate head, the right bloom radiata, the tati, the basal ganglia, and both thalami. Th ere is no hemorrhage or mass effect. No extra-axial fluid collection is seen. The cerebellar tonsils are normal in configuration. Ventricles, sulci, and cisterns: Prominent secondary to involutional change. Pituitary and sella: Partially empty sella is incidentally noted. Intracranial vasculature: Normal flow voids are maintained at the skull base. Orbits: The bony orbits are grossly intact. Orbital contents are normal in appearance noting bilatera l ocular lens implants. Sinuses and mastoids: There is mild mucosal thickening within the right ethmoid sinuses. The remainin g nasal sinuses are clear. The mastoid air cells are well pneumatized. Calvarium: Unremarkable. Cervical cord: Partially visualized cervical spinal cord is normal in morphology and signal intensity . IMPRESSION: 1. There is a punctate focus of restricted diffusion identified in the left posterior frontal cortex, likely representing a tiny acute to subacute infarct. 2. No additional foci of restricted diffusion are identified. 3. There is no hemorrhage or mass effect. 4. Age advanced senescent change and chronic infarcts as above. ACT 112: Negative or not required by law. Electronically signed by: Stevie Wray M.D. 08/24/2021 4:07 PM
--- NOTE | 2021-08-24 17:36 | Consultation Report ---
NEUROLOGY CONSULTATION NOTE DATE OF CONSULTATION: 08/24/2021 CHIEF COMPLAINT: Weakness/fall. HISTORY OF PRESENT ILLNESS: A 65-year-old female well known to [facility] and follows with Dr. Lisa Kaur for known CADASIL, hypertension, chronic headache/chronic low back pain, admitt ed yesterday for evaluation of weakness and fall. The patient today reports feeling okay and much im proved and is eating lunch. No family is at bedside. The patient does complain of chronic daily hea daches, which is unchanged as well as some mild low back discomfort. She is really not oriented to w hy she is in the hospital. She does have external catheter and is incontinent to urine. She is comp laining of dysuria. Per chart review, she was trying to get something out of the refrigerator when s he was bending over and fell to the floor. She was found by her daughter on the floor. She does hav e baseline weakness from her underlying CADASIL; however, it was thought that her weakness was worse. EMS was called with the patient was brought to the hospital. She denies any fever or chills. No a bdominal pain, nausea, vomiting or diarrhea. She had no dizziness. Urinalysis was suggestive of a u rinary tract infection in the ER. CT head showed chronic changes, not any evidence of acute hemorrha ge. CT head and neck showed high-grade stenosis of the posterior cerebral arteries, worse on the lef t. This has been seen previously on MRI imaging. The patient was given IV fluids and IV ceftriaxone and admitted to the hospital. Neurology was consulted upon admission. ALLERGIES: AMOXICILLIN. HOME MEDICATIONS: Amantadine, amitriptyline, atorvastatin, Wellbutrin, vitamin D, Cymbalta, magnesiu m oxide, Toprol-XL. PAST MEDICAL HISTORY: CADASIL/cerebral autosomal dominant arteriopathy with subcortical infarcts and leukoencephalopathy, degenerative joint disease, chronic headaches, hypertension, hypothyroidism, sp inal stenosis, intracranial stenosis. PAST SURGICAL HISTORY: No recent or pertinent surgical history. FAMILY HISTORY: Noncontributory. SOCIAL HISTORY: She is a current every day smoker. Denies any alcohol use. REVIEW OF SYSTEMS: All other review of systems was negative, except as noted above in the HPI. PHYSICAL EXAMINATION: Vital signs: Blood pressure 150/76, pulse is 56, respiratory rate 18, tempera ture is 36.9 degrees Celsius, oxygen saturation is 96% on room air. The patient appears stated age, thin-appearing woman, appears chronically ill. Her head is normocephalic and atraumatic. Her eyes a re midline and normal conjunctivae. Her neck is supple. Normal respiratory effort. Cardiac: Pulses are intact. Abdomen is nontender, no skin rash. She has a normal mood and affect. She is awake, a lert, oriented to her age. Attention is normal. Knowledge is poor. She is following simple command s and can repeat. Speech is soft with no dysarthria, she is missing her teeth. Extraocular muscles are intact. Pupils are symmetric. No facial asymmetry. Intact hearing. Palate is symmetric. Good shoulder shrug. Tongue is midline. Gait evaluation deferred. She has no tremor. Sensation is int act to light touch. Muscle tone shows some spasticity. Muscle exam no focal weakness. DIAGNOSTIC TESTING AND LABORATORY VALUES: WBC 8.62, hemoglobin 12.4, platelet count is 266. INR is 1.0. Sodium 142, potassium 3.4, chloride 110, carbon dioxide 28, BUN is 11, creatinine is 1.06. Uri nalysis showed cloudy, 1+ protein, 3+ blood, 1+ leukocyte esterase, 30 wbc's, greater than 30 rbc's, 10-20 epithelial cells. Urine culture is pending. Head and neck CTA showed high-grade stenosis of the P2 segment of the left posterior cerebral artery with moderate stenosis on the right. Atherosclerotic plaque of the left carotid bulb resulted in les s than 50% luminal narrowing. Head CT noncontrast showed no acute intracranial abnormality. Extensi ve white matter hypodensities suggestive of chronic microvascular ischemic disease. Chronic lacunar infarcts in both basal ganglia. Chest x-ray showed no acute process. ASSESSMENT AND PLAN: A 65-year-old female with known CADASIL as well as prior lacunar infarcts and k nown intracranial atherosclerosis on aspirin as well as chronic daily headaches, hypertension, and ge neralized weakness as well as spasticity on Zanaflex, admitted with worsening asthenia in the setting of presumed urinary tract infection. The patient at the moment, although gait was not evaluated, ap pears likely at baseline. The patient received IV fluids as well as ceftriaxone. Urine culture is p ending. The patient is well known to Dr. Lisa Kaur and following with Neurology for chronic issues. Has been seen by a MS specialist in the past due to concern for possible progressive MS. At this point, through extensive chart review, it looks like the decision was made that this is not a d emyelinating process, but indeed CADASIL. For now, I would recommend to continue current aspirin. W e will defer to primary team for urinary tract infection treatment. Urine culture is pending. Given her history of CADASIL, I would recommend obtaining an MRI of the brain with and without contrast if the patient can tolerate. Otherwise, in terms of falls and known weakness, we will defer to physica l therapy/occupational therapy for any rehabilitation needs. Neurology will continue to follow for n ow. Please contact me with any additional questions or concerns. Job ID: [id number]
[2021-08-24] MEDS: cefTRIAXone SODIUM 1,000 MG in DEXTROSE 5% 50 ML IV SCH (18:26)
[2021-08-24] MEDS: AMITRIPTYLINE HCL 50 MG TAB PO SCH (21:47)
[2021-08-24] MEDS: ATORVASTATIN 40 MG TAB PO SCH (21:47)
[2021-08-24] MEDS: ENOXAPARIN INJ 40 MG/0.4 ML SYR SQ SCH (21:48)
[2021-08-25] MEDS ORDERED: OLANZapine 10 MG/2.1 ML SDV IM STA (01:16)
--- NOTE | 2021-08-25 05:46 | Electrocardiogram Report ---
Test Reason : Blood Pressure : / mmHG Vent. Rate : 060 BPM Atrial Rate : 060 BPM P-R Int : 176 ms QRS Dur : 082 ms QT Int : 432 ms P-R-T Axes : 039 176 155 degrees QTc Int : 432 ms Normal sinus rhythm Suspect limb lead reversal but cannot rule out Lateral infarct Abnormal ECG No previous ECGs available Confirmed by Lamont Wade ([id number]) on 08/25/2021 5:46:40 AM Referred By: REFERRED SELF Confirmed By:Lamont Wade
--- NOTE | 2021-08-25 06:11 | Electrocardiogram Report ---
Test Reason : Blood Pressure : / mmHG Vent. Rate : 057 BPM Atrial Rate : 057 BPM P-R Int : 178 ms QRS Dur : 090 ms QT Int : 446 ms P-R-T Axes : 053 005 034 degrees QTc Int : 434 ms Sinus bradycardia Septal infarct , age undetermined Abnormal ECG When compared with ECG of 23-AUG-2021 15:22, Limb lead reversal is no longer present Septal infarct is now Present Confirmed by Laomnt Wade ([id number]) on 08/25/2021 6:10:36 AM Referred By: REFERRED SELF Confirmed By:Lamont Wade
[2021-08-25] MEDS: OLANZapine 10 MG/2.1 ML SDV IM PRN (07:30)
[2021-08-25] MEDS: DULoxetine HCL 60 MG CAP PO SCH (09:16)
[2021-08-25] MEDS: ASPIRIN 81 MG ECTAB PO SCH (09:16)
[2021-08-25] MEDS: AMANTADINE HCL 100 MG CAPSULE PO SCH (09:16)
[2021-08-25] MEDS: METOPROLOL SUCC 25MG EXT REL TAB PO SCH (09:16)
[2021-08-25] MEDS: buPROPion XL 150 MG TABCR PO SCH (09:16)
[2021-08-25 10:32] LABS: BUN Creatinine Ratio 8.8 (10-20); Calcium 9.1 mg/dl (8.5-10.1); Creatinine Clr Calc Pharmacy 38.7 ml/min; Est GFR (African American) 56.8 ml/min
[2021-08-25] MEDS: SODIUM CHLORIDE 0.9% 1000ML 1,000 ML IV SCH (13:22)
--- NOTE | 2021-08-25 16:06 | Hospitalist Progress Note ---
Date of Service August 25, 2021 Assessment & Plan (1) TIA (transient ischemic attack): (2) CADASIL (cerebral autosomal dominant arteriopathy with subcortical infarcts and leukoencephalopathy): (3) Fall: Plan: 65-year-old female with PMH of mis-diagnosis of MS/treatment for it x15 years until 3 years ago when she was diagnosed with CADASIL, recurrent TIA every 4 to 6-month [last one 3 to 4 months ago per her daughter] due to CADASIL, HTN, ambulatory dysfunction, recurrent UTIs, hypothyroidism, spinal stenosis presented 08/23 by ambulance for evaluation of weakness and fall. Per her daughter, her baseline is mildly demented, moderately independent, able to get around mostly. She has continence issues since 10 years. Patient has baseline weakness from underlying CADASIL and daughter felt like her weakness was worse than baseline. She is being managed for the following: #. Metabolic encephalopathy #. Recurrent TIA/possible current TIA secondary to cerebral autosomal dominant arteriopathy with subcortical infarcts and leukoencephalopathy [CADASIL] #. 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 Was misdiagnosed and treated for MS for 15 years until 3 years ago when she was diagnosed with CADASIL -has recurrent TIA every 4 to 6 months per her daughter. Admitting Head CT shows chronic changes. Admitting head and neck CTA shows high-grade stenosis of the P2 segment left posterior cerebral artery with moderate stenosis on the right, atherosclerotic plaque of the left carotid bulb results in less than 50% luminal narrowing Neurology on board: Continue with aspirin, stop smoking. Patient is started on aspirin and home atorvastatin increased to 80 mg. Continue supportive care, neurochecks. Stop Rocephin after 08/26 dose. #. Ambulatory dysfunction Due to incurable neurological condition at her baseline PT/OT, will need placement Recently worsened from her baseline #. HTN (hypertension): -BP controlled, continue metoprolol #. DVT prophylaxis: Subcu Lovenox Disposition: PT/OT recommending SNF. 08/24 conversation with the daughter over the phone (Chantel [phone]) to get information about her mother and discussed the plan of care. She voiced understanding and was agreeable. 08/25 conversation with the daughter over the phone, agreed psychiatric evaluation while inpatient. Updated, voiced understanding and was agreeable to plan of care. Admission and Anticipated Discharge Date Admission Date: August 23, 2021 Subjective Patient was lying in bed, in no distress, AOx3, room air. Patient reports no chest pain/headache/dizziness/other review of symptoms. Physical Exam Physical Exam: GENERAL: Alert and oriented x3. NAD, on RA. HEENT: No pallor, no icterus. Pupils equal, round and reactive to light. Oral mucosa moist. NECK: No JVD, no neck masses. HEART: S1 and S2 heard. Regular rate and rhythm. No murmur, no gallop. RESPIRATORY SYSTEM: Normal AP diameter. No accessory muscle use. No wheezing, no crackles. ABDOMEN: Soft, bowel sounds present, nontender, no distention. CENTRAL NERVOUS SYSTEM: No facial droop. Speech is clear. Obeys simple commands. Moves extremities. EXTREMITIES: No edema, no erythema seen. Results & Data Results & Data ([facility]) Vital Signs (Past 12 Hours) Vital Signs Temp Pulse Pulse Resp BP Pulse Ox 08/25/21 15:40 36.8 C 61 16 129/80 95 08/25/21 15:02 65 08/25/21 11:40 36.3 C L 64 16 136/80 96 08/25/21 08:03 36.5 C 60 16 146/90 H 94 08/25/21 08:00 62 (1) Fall Encounter type: initial encounter Qualified Code(s): W19.XXXA - Unspecified fall, initial encounter
--- NOTE | 2021-08-25 17:03 | Neurology Progress Note ---
Date of Service August 25, 2021 Assessment & Plan (1) CADASIL (cerebral autosomal dominant arteriopathy with subcortical infarcts and leukoencephalopathy): Plan: Ms. Daily is a pleasant 65-year-old woman with known CADASIL with residual spasticity, cognitive issues, and muscle weakness as well as previous lacunar infarctions and a known hypertension admitted with a constellation of symptoms consisting of a fall, disorientation, hallucination, dizziness, dysarthria, facial droop, right-sided weakness. Symptoms have since improved. Urine culture was negative. MRI of the brain with and without contrast shows a possible subtle diffusion restriction in the left MCA distribution although cannot completely exclude artifactual component as there is no strong ADC correlate on my review. I did discuss this finding with the patient's daughter. I do believe it would be hard for this embolic appearing infarct in the left MCA distribution to explain all of the symptoms noted upon admission. However the patient's known condition of CADASIL does often present with recurrent strokelike symptoms as well as chronic migraine. In regards to secondary stroke prevention I would recommend continue daily aspirin 81 mg daily. Blood pressure is currently well controlled. I did strongly encourage the patient to stop smoking. At this point I do believe the patient is back to her baseline per review of previous outpatient neurology notes. It does sound like through conversation with the daughter the patient is having intermittent hospital- acquired delirium. No additional neurological testing necessary. She can follow-up with her neurologist as an outpatient. Please contact me with any additional questions or concerns. Admission and Anticipated Discharge Date Admission Date: August 23, 2021 Subjective Patient was seen and examined this afternoon. She is sitting upright in bed with her lizandro bear. She reports feeling better. She denies any new or worsening symptoms. I did discuss her MRI brain findings as well as urine culture results. Physical Exam Physical Exam: Patient is awake alert and oriented to her age. She is following simple commands. Extraocular muscles are intact. Face is symmetrical smile. Tongue is midline. Eyes are midline. Mild dysarthria although missing her dentures. She is moving all 4 extremities against gravity. Has loss of motor function in the hands which is chronic as well as chronic right-sided weakness and spasticity. Results & Data ([facility]) Vital Signs (Past 12 Hours) Vital Signs Temp Pulse Pulse Resp BP Pulse Ox 08/25/21 15:40 36.8 C 61 16 129/80 95 08/25/21 15:02 65 08/25/21 11:40 36.3 C L 64 16 136/80 96 08/25/21 08:03 36.5 C 60 16 146/90 H 94 08/25/21 08:00 62 Diagnostic Findings MRI of the brain with and without contrast reviewed. There is a diffusion restriction in the left MCA distribution with possible subtle ADC correlate.
[2021-08-25] MEDS: cefTRIAXone SODIUM 1,000 MG in DEXTROSE 5% 50 ML IV SCH (17:36)
[2021-08-25] MEDS: AMITRIPTYLINE HCL 50 MG TAB PO SCH (20:13)
[2021-08-25] MEDS: ENOXAPARIN INJ 40 MG/0.4 ML SYR SQ SCH (20:13)
[2021-08-25] MEDS: ATORVASTATIN 40 MG TAB PO SCH (20:13)
[2021-08-26] MEDS: buPROPion XL 150 MG TABCR PO SCH (09:13)
[2021-08-26] MEDS: AMANTADINE HCL 100 MG CAPSULE PO SCH (09:13)
[2021-08-26] MEDS: ASPIRIN 81 MG ECTAB PO SCH (09:13)
[2021-08-26] MEDS: DULoxetine HCL 60 MG CAP PO SCH (09:14)
[2021-08-26] MEDS: METOPROLOL SUCC 25MG EXT REL TAB PO SCH (09:14)
--- NOTE | 2021-08-26 15:41 | Psychiatric Consultation ---
Date of Consultation August 26, 2021 Impression / Recommendations Impression This is a 65-year-old woman with a history of neurologic syndrome with transient TIAs with associated confusion. Additionally patient was found to have UTI, which is likely contributing to her confusion. At this time, psychiatric intervention is unlikely to be helpful and will possibly contribute to patient's confusion as well as decrease her baseline functioning. Patient has an outpatient psychiatrist for whom she could follow-up with if symptoms of dementia continue to worsen. (1) CADASIL (cerebral autosomal dominant arteriopathy with subcortical infarcts and leukoencephalopathy): (2) UTI (urinary tract infection): Hematuria presence: without hematuria Urinary tract infection type: acute cystitis Qualified Code(s): N30.00 - Acute cystitis without hematuria Continue to treat UTI No further psychiatric intervention at this time. Patient to follow-up with outpatient psychiatrist. Psych History Chief Complaint "I am okay". History of Present Illness HPI as per psychiatric liaison "met with pt for initial consult. Consulted for agitation, possible psychosis. Pt alert and oriented x4 during conversation. She was appropriate during conversation and no irritability or agitation noted. Pt is somewhat of a poor historian. She is able to recall her psychotropic medications and states she has been "on them for years." She stated she has a psychiatrist but unable to recall the name. She denies any therapist. Denies SI/HI or past psychiatric hospitalizations. She states she lives by herself but her daughter checks on her daily. She states she is active with home health through [facility] and states they come to her home once weekly. She was able to inform this nurse of her misdiagnosis for 17 years prior to her being diagnosed with CARDISIL. Pt was noted to get confused once during conversation when she started calling for her daughter, Brandie, because she believed she was in the bed next to her. Pt was able to be reoriented easily. She denies questions or concerns at this time. Pt notified she would speak to a psychiatrist later today. Verbalized understanding." Upon evaluation this afternoon, patient denied any acute psychiatric symptoms. She stated that she has an outpatient psychiatrist with whom she will follow up. She denies any acute psychosis, delusions, suicidal homicidal ideation. Allergies Allergy/AdvReac Type Severity Reaction Status Date / Time amoxicillin Allergy Intermediate Rash Verified 08/23/21 16:56 Home Medications Medication Instructions Recorded Confirmed Type amantadine HCl 100 mg capsule 100 mg PO DAILY 08/23/21 08/23/21 History amitriptyline 50 mg tablet 50 mg PO HS 08/23/21 08/23/21 History atorvastatin 10 mg tablet 10 mg PO HS 08/23/21 08/23/21 History bupropion HCl 150 mg 24 hr tablet, 150 mg PO DAILY 08/23/21 08/23/21 History extended release cholecalciferol (vitamin D3) 125 125 mcg PO DAILY 08/23/21 08/23/21 History mcg (5,000 unit) capsule duloxetine 60 mg capsule,delayed 60 mg PO DAILY 08/23/21 08/23/21 History release magnesium oxide 500 mg capsule 500 mg PO DAILY 08/23/21 08/23/21 History metoprolol succinate 25 mg 25 mg PO DAILY 08/23/21 08/23/21 History tablet,extended release 24 hr Personal History Beliefs That Will Affect Care: None Patient History Medical History CADASIL (cerebral autosomal dominant arteriopathy with subcortical infarcts and leukoencephalopathy) Degenerative joint disease HTN (hypertension) Hyperthyroidism Spinal stenosis Surgical History No significant past surgical history Family History Other Family history non-contributory Social History Smoking Status: Current every day smoker Cigarettes Per Day: 10; Second Hand Exposure: No; Do You Dip or Chew Tobacco: No; Tobacco Cessation Education Requested by Patient: No Hx Alcohol Use: No Hx Substance Use: No Communication Ability: Effective Legislative Advocate Required: No Beliefs That Will Affect Care: None marital status: Current Living Situation: Alone How many Children do You have: 2 Other Information That Helps Us Care for You: No Feels Safe at Home: Yes Safety Concerns: Feels Safe At This Time Assistive Devices: Walker and Wheelchair Physical Exam Psychiatric: Orientation: alert and oriented x 3 Apperance: appropriately dressed Eye Contact: good eye contact Motor Behavior: no abnormal motor movements Speech: normal rate/rhythm/volume of speech Affect: euthymic affect Mood: no depressed mood and no anxious mood Thought Process: goal directed thought process Thought Content: reality based without delusions Suicidal Thoughts: denies suicidal thoughts Homicidal Thoughts: denies homicidal thoughts Hallucinations: no auditory hallucinations and no visual hallucinations Cognition: recent memory grossly intact Estimated Intelligence: average estimated intelligence Insight: + limited insight Judgement: + limited judgement Vital Signs (Past 24 Hours): Last Vital Signs Temp 37.1 C 08/26/21 10:43 Pulse 68 08/26/21 15:33 Resp 18 08/26/21 10:43 BP 146/88 H 08/26/21 10:43 Pulse Ox 93 08/26/21 10:43 Review of Systems All systems reviewed & are unremarkable except as noted in HPI & below Results & Data (PSY) Medications Administered Amantadine HCl (Amantadine Hcl 100 Mg Capsule) 100 mg PO DAILY YANDEL Stop: 09/23/21 08:59 Last Admin: 08/26/21 09:13 Dose: 100 mg Documented by: [id number] Cosigned by: [id number] Admin: 08/25/21 09:16 Dose: 100 mg Documented by: [id number] Admin: 08/24/21 08:18 Dose: 100 mg Documented by: [id number] Amitriptyline HCl (Amitriptyline Hcl 50 Mg Tab) 50 mg PO HS YANDEL Stop: 09/22/21 21:03 Last Admin: 08/25/21 20:13 Dose: 50 mg Documented by: [id number] Admin: 08/24/21 21:47 Dose: 50 mg Documented by: [id number] Admin: 08/23/21 23:01 Dose: 50 mg Documented by: [id number] Aspirin (Aspirin 81 Mg Ectab) 81 mg PO DAILY YANDEL Stop: 09/23/21 08:59 Last Admin: 08/26/21 09:13 Dose: 81 mg Documented by: [id number] Cosigned by: [id number] Admin: 08/25/21 09:16 Dose: 81 mg Documented by: [id number] Admin: 08/24/21 08:18 Dose: 81 mg Documented by: [id number] Atorvastatin Calcium (Atorvastatin 40 Mg Tab) 80 mg PO HS YANDEL Stop: 09/22/21 21:03 Last Admin: 08/25/21 20:13 Dose: 80 mg Documented by: [id number] Admin: 08/24/21 21:47 Dose: 80 mg Documented by: [id number] Admin: 08/23/21 23:00 Dose: 80 mg Documented by: [id number] Bupropion HCl (Bupropion Xl 150 Mg Tabcr) 150 mg PO DAILY YANDEL Stop: 09/23/21 08:59 Last Admin: 08/26/21 09:13 Dose: 150 mg Documented by: [id number] Cosigned by: [id number] Admin: 08/25/21 09:16 Dose: 150 mg Documented by: [id number] Admin: 08/24/21 08:18 Dose: 150 mg Documented by: [id number] Duloxetine HCl (Duloxetine Hcl 60 Mg Cap) 60 mg PO DAILY YANDEL Stop: 09/23/21 08:59 Last Admin: 08/26/21 09:14 Dose: 60 mg Documented by: [id number] Cosigned by: [id number] Admin: 08/25/21 09:16 Dose: 60 mg Documented by: [id number] Admin: 08/24/21 08:18 Dose: 60 mg Documented by: [id number] Enoxaparin Sodium (Enoxaparin Inj 40 Mg/0.4 Ml Syr) 40 mg SQ HS YANDEL Stop: 09/22/21 21:29 Last Admin: 08/25/21 20:13 Dose: 40 mg Documented by: [id number] Admin: 08/24/21 21:48 Dose: 40 mg Documented by: [id number] Admin: 08/23/21 23:00 Dose: 40 mg Documented by: [id number] Ceftriaxone Sodium 1,000 mg/ (Dextrose) 50 mls @ 100 mls/hr IV Q24H [facility]; Protocol Stop: 08/29/21 17:59 Last Infusion: 08/25/21 18:21 Dose: 0 mls/hr Documented by: [id number] Admin: 08/25/21 17:36 Dose: 100 mls/hr Documented by: [id number] Infusion: 08/24/21 19:04 Dose: 0 mls/hr Documented by: [id number] Admin: 08/24/21 18:26 Dose: 100 mls/hr Documented by: [id number] Metoprolol Succinate (Metoprolol Succ 25mg Ext Rel Tab) 25 mg PO DAILY YANDEL Stop: 09/23/21 08:59 Last Admin: 08/26/21 09:14 Dose: 25 mg Documented by: [id number] Cosigned by: [id number] Admin: 08/25/21 09:16 Dose: 25 mg Documented by: [id number] Admin: 08/24/21 08:18 Dose: 25 mg Documented by: [id number] Olanzapine (Olanzapine 10 Mg/2.1 Ml Sdv) 2.5 mg IM Q4H PRN PRN Reason: Anxiety/Agitation Stop: 09/24/21 01:13 Last Admin: 08/25/21 07:30 Dose: 2.5 mg Documented by: [id number] Coding Level of Care Code 13451 [facility] Diagnoses CADASIL (cerebral autosomal dominant arteriopathy with subcortical infarcts and leukoencephalopathy) I67.850 UTI (urinary tract infection) N30.00 Hematuria presence: without hematuria Urinary tract infection type: acute cystitis Time Spent (min) 45
--- NOTE | 2021-08-26 15:48 | Hospitalist Progress Note ---
Date of Service August 26, 2021 Assessment & Plan (1) TIA (transient ischemic attack): (2) CADASIL (cerebral autosomal dominant arteriopathy with subcortical infarcts and leukoencephalopathy): (3) Fall: Plan: 65-year-old female with PMH of mis-diagnosis of MS/treatment for it x15 years until 3 years ago when she was diagnosed with CADASIL, recurrent TIA every 4 to 6-month [last one 3 to 4 months ago per her daughter] due to CADASIL, HTN, ambulatory dysfunction, recurrent UTIs, hypothyroidism, spinal stenosis presented 08/23 by ambulance for evaluation of weakness and fall. Per her daughter, her baseline is mildly demented, moderately independent, able to get around mostly. She has continence issues since 10 years. Patient has baseline weakness from underlying CADASIL and daughter felt like her weakness was worse than baseline. She is being managed for the following: #. Metabolic encephalopathy #. Recurrent TIA/possible current TIA secondary to cerebral autosomal dominant arteriopathy with subcortical infarcts and leukoencephalopathy [CADASIL] #. UTI #. 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 Continue with ceftriaxone 08/23, stop after tomorrow's dose 08/24 MRI brain: Punctate focus of restricted diffusion identified in the left posterior frontal cortex, likely representing a tiny acute or subacute infarct. Was misdiagnosed and treated for MS for 15 years until 3 years ago when she was diagnosed with CADASIL -has recurrent TIA every 4 to 6 months per her daughter. Admitting Head CT shows chronic changes. Admitting head and neck CTA shows high-grade stenosis of the P2 segment left posterior cerebral artery with moderate stenosis on the right, atherosclerotic plaque of the left carotid bulb results in less than 50% luminal narrowing Neurology on board: Continue with aspirin, stop smoking. Patient is started on aspirin and home atorvastatin increased to 80 mg. Continue supportive care, neurochecks. Stop Rocephin after 08/26 dose. Clinically patient seemed more stable and has improved significantly today. #. Ambulatory dysfunction Due to incurable neurological condition at her baseline PT/OT, will need placement Recently worsened from her baseline #. HTN (hypertension): -BP controlled, continue metoprolol #. DVT prophylaxis: Subcu Lovenox Disposition: PT/OT recommending SNF. Patient improved significantly today, can be DC'd when placement available unless no new issues arises in the interim. Per director of casework, patient will likely go [facility]. 08/24 conversation with the daughter over the phone (Chantel [phone]) to get information about her mother and discussed the plan of care. She voiced understanding and was agreeable. 08/25 conversation with the daughter over the phone, agreed psychiatric evaluation while inpatient. Updated, voiced understanding and was agreeable to plan of care. Admission and Anticipated Discharge Date Admission Date: August 23, 2021 Subjective Patient was examined at the bedside in the morning. Patient lying in bed, on room air, NAD, no issues overnight. Patient AOx3, calm, more towards her baseline. Patient denies any pain/shortness of breath/fever/chills/any other issues. Physical Exam Physical Exam: GENERAL: Alert and oriented x3. NAD, on RA. HEENT: No pallor, no icterus. Pupils equal, round and reactive to light. Oral mucosa moist. NECK: No JVD, no neck masses. HEART: S1 and S2 heard. Regular rate and rhythm. No murmur, no gallop. RESPIRATORY SYSTEM: Normal AP diameter. No accessory muscle use. No wheezing, no crackles. ABDOMEN: Soft, bowel sounds present, nontender, no distention. CENTRAL NERVOUS SYSTEM: No facial droop. Speech is clear. Obeys simple commands. Moves extremities. EXTREMITIES: No edema, no erythema seen. Results & Data Results & Data ([facility]) Vital Signs (Past 12 Hours) Vital Signs Temp Pulse Pulse Resp BP Pulse Ox 08/26/21 15:43 37 C 69 16 137/81 94 08/26/21 15:33 68 08/26/21 10:43 37.1 C 70 18 146/88 H 93 08/26/21 07:36 59 L 08/26/21 07:32 36.4 C L 63 18 120/83 95 (1) Fall Encounter type: initial encounter Qualified Code(s): W19.XXXA - Unspecified fall, initial encounter
[2021-08-26] MEDS: cefTRIAXone SODIUM 1,000 MG in DEXTROSE 5% 50 ML IV SCH (18:21)
[2021-08-26] MEDS: AMITRIPTYLINE HCL 50 MG TAB PO SCH (21:07)
[2021-08-26] MEDS: ATORVASTATIN 40 MG TAB PO SCH (21:07)
[2021-08-26] MEDS: ENOXAPARIN INJ 40 MG/0.4 ML SYR SQ SCH (21:07)
[2021-08-26] MEDS: ACETAMINOPHEN 325 MG TAB PO PRN (21:11)
[2021-08-27] MEDS: ASPIRIN 81 MG ECTAB PO SCH (07:56)
[2021-08-27] MEDS: buPROPion XL 150 MG TABCR PO SCH (07:56)
[2021-08-27] MEDS: DULoxetine HCL 60 MG CAP PO SCH (07:56)
[2021-08-27] MEDS: AMANTADINE HCL 100 MG CAPSULE PO SCH (07:56)
[2021-08-27] MEDS: METOPROLOL SUCC 25MG EXT REL TAB PO SCH (07:56)
--- NOTE | 2021-08-27 16:42 | Hospitalist Progress Note ---
Date of Service August 27, 2021 Assessment & Plan (1) TIA (transient ischemic attack): (2) CADASIL (cerebral autosomal dominant arteriopathy with subcortical infarcts and leukoencephalopathy): (3) Fall: Plan: 65-year-old female with PMH of mis-diagnosis of MS/treatment for it x15 years until 3 years ago when she was diagnosed with CADASIL, recurrent TIA every 4 to 6-month [last one 3 to 4 months ago per her daughter] due to CADASIL, HTN, ambulatory dysfunction, recurrent UTIs, hypothyroidism, spinal stenosis presented 08/23 by ambulance for evaluation of weakness and fall. Per her daughter, her baseline is mildly demented, moderately independent, able to get around mostly. She has continence issues since 10 years. Patient has baseline weakness from underlying CADASIL and daughter felt like her weakness was worse than baseline. She is being managed for the following: #. Metabolic encephalopathy #. Recurrent TIA/possible current TIA secondary to cerebral autosomal dominant arteriopathy with subcortical infarcts and leukoencephalopathy [CADASIL] #. UTI #. 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 Continue with ceftriaxone 08/23, stop after tomorrow's dose 08/24 MRI brain: Punctate focus of restricted diffusion identified in the left posterior frontal cortex, likely representing a tiny acute or subacute infarct. Was treated for possible MS for 15 years until 3 years ago when she was diagnosed with CADASIL -has recurrent TIA every 4 to 6 months per her daughter. Admitting Head CT shows chronic changes. Admitting head and neck CTA shows high-grade stenosis of the P2 segment left posterior cerebral artery with moderate stenosis on the right, atherosclerotic plaque of the left carotid bulb results in less than 50% luminal narrowing Neurology on board: Continue with aspirin, stop smoking. Appreciate neurology input and recommendation Patient is started on aspirin and home atorvastatin increased to 80 mg. Continue supportive care, neurochecks. Stop Rocephin after 08/26 dose. Clinically patient seemed more stable and has improved significantly today. Denies any significant symptoms today and feels that she is at her baseline Awaiting placement #. Ambulatory dysfunction Due to incurable neurological condition at her baseline PT/OT, will need placement Recently worsened from her baseline Has had a fall this morning when she was trying to come out of bed and landed on her bottom without any significant injury She denies any warning symptoms before the fall but her blood pressure was noted to be high at systolic 180 #. HTN (hypertension): -BP controlled, continue metoprolol #. DVT prophylaxis: Subcu Lovenox Disposition: PT/OT recommending SNF. Patient improved significantly today, can be DC'd when placement available unless no new issues arises in the interim. Per field case manager, patient will likely go to [facility] tomorrow. 08/24 conversation with the daughter over the phone (Chantel [phone]) to [place] information about her mother and discussed the plan of care. She voiced understanding and was agreeable. 08/25 conversation with the daughter over the phone, agreed psychiatric evaluation while inpatient. Updated, voiced understanding and was agreeable to plan of care. Awaiting acceptance from [facility] Admission and Anticipated Discharge Date Admission Date: August 23, 2021 Subjective 08/27/2021 The patient was seen and examined in medical telemetry unit She has been feeling much better with some generalized weakness She has had a mechanical fall this morning without any significant injury She has been feeling much better during my examination Review of Systems Review of Systems: All systems reviewed and are unremarkable except as noted below Physical Exam Physical Exam: Lying in bed comfortably Constitutional: well developed, well nourished and + ill appearing Eyes: PERRL, conjunctivae normal, anicteric sclerae ENMT: external ear and nose normal, oropharynx normal Neck: trachea midline, no thyromegaly Respiratory: no respiratory distress and no cough Auscultation: lungs clear to auscultation bilaterally Cardiovascular: Rate/Rhythm: regular rate and regular rhythm; not tachycardic Heart Sounds: normal S1 and normal S2; no murmur Extremities: no edema Gastrointestinal (Abdomen): Inspection/Auscultation: normal bowel sounds; abdomen not distended Percussion/Palpation: abdomen soft; abdomen nontender Musculoskeletal: No acute arthritis in any joint Neurologic: Alert, awake and oriented x3. Generally weak Results & Data Results & Data ([facility]) Vital Signs (Past 12 Hours) Vital Signs Temp Pulse Pulse Pulse Resp BP BP 08/27/21 15:57 75 08/27/21 15:03 37.1 C 76 18 153/89 H 08/27/21 11:05 37.4 C 84 18 166/74 H 08/27/21 09:01 87 132/87 08/27/21 07:45 74 08/27/21 07:20 37.2 C 71 18 136/83 08/27/21 07:19 36.7 C 87 16 182/100 H Pulse Ox 08/27/21 15:57 08/27/21 15:03 95 08/27/21 11:05 97 08/27/21 09:01 08/27/21 07:45 08/27/21 07:20 93 08/27/21 07:19 97 Medications Administered Current Inpatient Medications Acetaminophen (Acetaminophen 325 Mg Tab) 650 mg PO Q4H PRN PRN Reason: pain/fever Stop: 09/22/21 21:03 Last Admin: 08/26/21 21:11 Dose: 650 mg Documented by: Amantadine HCl (Amantadine Hcl 100 Mg Capsule) 100 mg PO DAILY YANDEL Stop: 09/23/21 08:59 Last Admin: 08/27/21 07:56 Dose: 100 mg Documented by: Amitriptyline HCl (Amitriptyline Hcl 50 Mg Tab) 50 mg PO HS YANDEL Stop: 09/22/21 21:03 Last Admin: 08/26/21 21:07 Dose: 50 mg Documented by: Aspirin (Aspirin 81 Mg Ectab) 81 mg PO DAILY YANDEL Stop: 09/23/21 08:59 Last Admin: 08/27/21 07:56 Dose: 81 mg Documented by: Atorvastatin Calcium (Atorvastatin 40 Mg Tab) 80 mg PO HS YANDEL Stop: 09/22/21 21:03 Last Admin: 08/26/21 21:07 Dose: 80 mg Documented by: Bupropion HCl (Bupropion Xl 150 Mg Tabcr) 150 mg PO DAILY YANDEL Stop: 09/23/21 08:59 Last Admin: 08/27/21 07:56 Dose: 150 mg Documented by: Duloxetine HCl (Duloxetine Hcl 60 Mg Cap) 60 mg PO DAILY YANDEL Stop: 09/23/21 08:59 Last Admin: 08/27/21 07:56 Dose: 60 mg Documented by: Enoxaparin Sodium (Enoxaparin Inj 40 Mg/0.4 Ml Syr) 40 mg SQ HS YANDEL Stop: 09/22/21 21:29 Last Admin: 08/26/21 21:07 Dose: 40 mg Documented by: Ceftriaxone Sodium 1,000 mg/ (Dextrose) 50 mls @ 100 mls/hr IV Q24H YANDEL; Protocol Stop: 08/29/21 17:59 Last Infusion: 08/26/21 18:51 Dose: Infused Documented by: Metoprolol Succinate (Metoprolol Succ 25mg Ext Rel Tab) 25 mg PO DAILY YANDEL Stop: 09/23/21 08:59 Last Admin: 08/27/21 07:56 Dose: 25 mg Documented by: Olanzapine (Olanzapine 10 Mg/2.1 Ml Sdv) 2.5 mg IM Q4H PRN PRN Reason: Anxiety/Agitation Stop: 09/24/21 01:13 Last Admin: 08/25/21 07:30 Dose: 2.5 mg Documented by: (1) Fall Encounter type: initial encounter Qualified Code(s): W19.XXXA - Unspecified fall, initial encounter
[2021-08-27] MEDS: cefTRIAXone SODIUM 1,000 MG in DEXTROSE 5% 50 ML IV SCH (17:38)
[2021-08-27] MEDS: ACETAMINOPHEN 325 MG TAB PO PRN (22:30)
[2021-08-27] MEDS: ATORVASTATIN 40 MG TAB PO SCH (22:32)
[2021-08-27] MEDS: AMITRIPTYLINE HCL 50 MG TAB PO SCH (22:32)
[2021-08-27] MEDS: ENOXAPARIN INJ 40 MG/0.4 ML SYR SQ SCH (22:32)
[2021-08-28] MEDS: OLANZapine 10 MG/2.1 ML SDV IM PRN (02:00)
[2021-08-28] MEDS: ASPIRIN 81 MG ECTAB PO SCH (09:00)
[2021-08-28] MEDS: buPROPion XL 150 MG TABCR PO SCH (09:00)
[2021-08-28] MEDS: DULoxetine HCL 60 MG CAP PO SCH (09:01)
[2021-08-28] MEDS: METOPROLOL SUCC 25MG EXT REL TAB PO SCH (09:01)
[2021-08-28] MEDS: AMANTADINE HCL 100 MG CAPSULE PO SCH (09:01)
--- NOTE | 2021-08-28 11:38 | Hospitalist Progress Note ---
Date of Service August 28, 2021 Assessment & Plan (1) TIA (transient ischemic attack): (2) CADASIL (cerebral autosomal dominant arteriopathy with subcortical infarcts and leukoencephalopathy): (3) Fall: Plan: 65-year-old female with PMH of mis-diagnosis of MS/treatment for it x15 years until 3 years ago when she was diagnosed with CADASIL, recurrent TIA every 4 to 6-month [last one 3 to 4 months ago per her daughter] due to CADASIL, HTN, ambulatory dysfunction, recurrent UTIs, hypothyroidism, spinal stenosis presented 08/23 by ambulance for evaluation of weakness and fall. Per her daughter, her baseline is mildly demented, moderately independent, able to get around mostly. She has continence issues since 10 years. Patient has baseline weakness from underlying CADASIL and daughter felt like her weakness was worse than baseline. She is being managed for the following: #. Metabolic encephalopathy #. Recurrent TIA/possible current TIA secondary to cerebral autosomal dominant arteriopathy with subcortical infarcts and leukoencephalopathy [CADASIL] #. UTI #. 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 Continue with ceftriaxone 08/23, stop after tomorrow's dose 08/24 MRI brain: Punctate focus of restricted diffusion identified in the left posterior frontal cortex, likely representing a tiny acute or subacute infarct. Was treated for possible MS for 15 years until 3 years ago when she was diagnosed with CADASIL -has recurrent TIA every 4 to 6 months per her daughter. Admitting Head CT shows chronic changes. Admitting head and neck CTA shows high-grade stenosis of the P2 segment left posterior cerebral artery with moderate stenosis on the right, atherosclerotic plaque of the left carotid bulb results in less than 50% luminal narrowing Neurology on board: Continue with aspirin, stop smoking. Appreciate neurology input and recommendation Patient is started on aspirin and home atorvastatin increased to 80 mg. Continue supportive care, neurochecks. Stop Rocephin after 08/26 dose. Clinically patient seemed more stable and has improved significantly today. Denies any significant symptoms today and feels that she is at her baseline Remains stable and will be discharged to [facility] this afternoon #. Ambulatory dysfunction Due to incurable neurological condition at her baseline PT/OT, will need placement Recently worsened from her baseline Has had a fall this morning when she was trying to come out of bed and landed on her bottom without any significant injury She denies any warning symptoms before the fall but her blood pressure was noted to be high at systolic 180 Blood pressure remains stable #. HTN (hypertension): -BP controlled, continue metoprolol #. DVT prophylaxis: Subcu Lovenox Disposition: PT/OT recommending SNF. Patient improved significantly today, can be DC'd when placement available unless no new issues arises in the interim. Per insurance case manager, patient will likely go to [facility] today 08/24 conversation with the daughter over the phone (Chantel [phone]) to get information about her mother and discussed the plan of care. She voiced understanding and was agreeable. 08/25 conversation with the daughter over the phone, agreed psychiatric evaluation while inpatient. Updated, voiced understanding and was agreeable to plan of care. Awaiting acceptance from [facility]-discharged to [facility] this afternoon Admission and Anticipated Discharge Date Admission Date: August 23, 2021 Subjective 08/27/2021 The patient was seen and examined in medical telemetry unit She has been feeling much better with some generalized weakness She has had a mechanical fall this morning without any significant injury She has been feeling much better during my examination 08/28/2021 The patient was seen and examined in medical telemetry unit She has generalized weakness but denies any other symptoms She was asking how long she will be in [facility] She will be discharged to [facility] this afternoon Review of Systems Review of Systems: All systems reviewed and are unremarkable except as noted below Physical Exam Physical Exam: Lying in bed comfortably Constitutional: well developed, well nourished and + ill appearing Eyes: PERRL, conjunctivae normal, anicteric sclerae ENMT: external ear and nose normal, oropharynx normal Neck: trachea midline, no thyromegaly Respiratory: no respiratory distress and no cough Auscultation: lungs clear to auscultation bilaterally Cardiovascular: Rate/Rhythm: regular rate and regular rhythm; not tachycardic Heart Sounds: normal S1 and normal S2; no murmur Extremities: no edema Gastrointestinal (Abdomen): Inspection/Auscultation: normal bowel sounds; abdomen not distended Percussion/Palpation: abdomen soft; abdomen nontender Musculoskeletal: No acute arthritis in any joint Neurologic: She is alert, awake and oriented x3. Minimal generalized weakness but does not have any focal neurological deficit Psychiatric: A+Ox3, euthymic affect Results & Data Results & Data ([facility] [place]) Vital Signs (Past 12 Hours) Vital Signs Temp Pulse Resp BP Pulse Ox 08/28/21 10:50 37.1 C 76 18 137/72 96 08/28/21 07:24 36.8 C 68 18 137/88 97 Medications Administered Current Inpatient Medications Acetaminophen (Acetaminophen 325 Mg Tab) 650 mg PO Q4H PRN PRN Reason: pain/fever Stop: 09/22/21 21:03 Last Admin: 08/27/21 22:30 Dose: 650 mg Documented by: Amantadine HCl (Amantadine Hcl 100 Mg Capsule) 100 mg PO DAILY PENDING SALE TO [facility] Stop: 09/23/21 08:59 Last Admin: 08/28/21 09:01 Dose: 100 mg Documented by: Amitriptyline HCl (Amitriptyline Hcl 50 Mg Tab) 50 mg PO HS PENDING SALE TO [facility] Stop: 09/22/21 21:03 Last Admin: 08/27/21 22:32 Dose: 50 mg Documented by: Aspirin (Aspirin 81 Mg Ectab) 81 mg PO DAILY YANDEL Stop: 09/23/21 08:59 Last Admin: 08/28/21 09:00 Dose: 81 mg Documented by: Atorvastatin Calcium (Atorvastatin 40 Mg Tab) 80 mg PO HS PENDING SALE TO [facility] Stop: 09/22/21 21:03 Last Admin: 08/27/21 22:32 Dose: 80 mg Documented by: Bupropion HCl (Bupropion Xl 150 Mg Tabcr) 150 mg PO DAILY YANDEL Stop: 09/23/21 08:59 Last Admin: 08/28/21 09:00 Dose: 150 mg Documented by: Duloxetine HCl (Duloxetine Hcl 60 Mg Cap) 60 mg PO DAILY YANDEL Stop: 09/23/21 08:59 Last Admin: 08/28/21 09:01 Dose: 60 mg Documented by: Enoxaparin Sodium (Enoxaparin Inj 40 Mg/0.4 Ml Syr) 40 mg SQ HS PENDING SALE TO [facility] Stop: 09/22/21 21:29 Last Admin: 08/27/21 22:32 Dose: 40 mg Documented by: Ceftriaxone Sodium 1,000 mg/ (Dextrose) 50 mls @ 100 mls/hr IV Q24H PENDING SALE TO [facility]; Protocol Stop: 08/29/21 17:59 Last Infusion: 08/27/21 18:15 Dose: Infused Documented by: Metoprolol Succinate (Metoprolol Succ 25mg Ext Rel Tab) 25 mg PO DAILY YANDEL Stop: 09/23/21 08:59 Last Admin: 08/28/21 09:01 Dose: 25 mg Documented by: Olanzapine (Olanzapine 10 Mg/2.1 Ml Sdv) 2.5 mg IM Q4H PRN PRN Reason: Anxiety/Agitation Stop: 09/24/21 01:13 Last Admin: 08/28/21 02:00 Dose: 2.5 mg Documented by: (1) Fall Encounter type: initial encounter Qualified Code(s): W19.XXXA - Unspecified fall, initial encounter
--- NOTE | 2021-08-29 08:07 | Discharge Summary ---
Date of Service August 29, 2021 Admission HPI Per Admitting Provider 65-year-old female with PMH CADASIL, HTN, and other problems listed below who presents the ED for evaluation of weakness and fall. Patient has some underlying cognitive impairment and history is limited from her. She has difficulty focusing. She reports that she was trying to get something out of the refrigerator and while she was bending over, she fell to the floor. She reports that her daughter came home from work about 10 to 15 minutes later and found her on the floor. Patient has baseline weakness from underlying CADASIL and daughter felt like her weakness was worse than baseline. EMS was called and patient was brought to the ED for further evaluation. Patient reports she has been having some bladder pain and dysuria for the past few days. She denies fevers and chills. No abdominal pain, nausea, vomiting, diarrhea. She denies lightheadedness, dizziness, diaphoresis, syncopal events. No chest pain or shortness of breath. In the ED, patient is hemodynamically stable. UA is suggestive of UTI. Head CT shows chronic changes. Head and neck CTA shows high-grade stenosis of the P2 segment left posterior cerebral artery with moderate stenosis on the right, atherosclerotic plaque of the left carotid bulb results in less than 50% luminal narrowing. Patient was given IVF and IV ceftriaxone. Admission Exam Per Admitting Provider Constitutional: WD/WN, vitals as above Eyes: PERRL, conjunctivae normal, anicteric sclerae ENMT: external ear and nose normal, oropharynx normal Respiratory: normal respiratory effort, lungs clear to auscultation Cardiovascular: Rate/Rhythm: regular rate and regular rhythm Vessels: normal peripheral pulses Extremities: no edema Gastrointestinal (Abdomen): normal bowel sounds, soft, nontender, no hepatosplenomegaly Musculoskeletal: Extremities: no cyanosis and no clubbing strength 4/5 throughout Skin: no rashes, warm and dry Neurologic: moves all extremities and awake; no focal motor deficits Speech / Cognition: + abnormal speech (mild dysarthria, at baseline) Cranial Nerves: PERRL, normal accommodation, EOM intact bilaterally and normal facial strength Psychiatric: Orientation: alert, oriented to person and oriented to place; + not oriented to time Insight: + limited insight Principal Diagnosis CADASIL-cerebral autosomal dominant arteriopathy with subcortical infarcts and leukoencephalopathy, ambulatory dysfunction, hypertension Discharge Exam Constitutional well developed, well nourished and + ill appearing Eyes PERRL, conjunctivae normal, anicteric sclerae ENMT external ear and nose normal, oropharynx normal Neck trachea midline, no thyromegaly Respiratory no respiratory distress and no cough Auscultation: lungs clear to auscultation bilaterally Cardiovascular Rate/Rhythm: regular rate and regular rhythm; not tachycardic Heart Sounds: normal S1 and normal S2; no murmur Extremities: no edema Gastrointestinal (Abdomen) Inspection/Auscultation: normal bowel sounds; abdomen not distended Percussion/Palpation: abdomen soft; abdomen nontender Psychiatric A+Ox3, euthymic affect Discharge Data Allergies Allergy/AdvReac Type Severity Reaction Status Date / Time amoxicillin Allergy Intermediate Rash Verified 08/23/21 16:56 Consultations 08/23/21 17:58 ED Decision to Admit Stat 08/23/21 21:04 Consult Neurology Routine 08/25/21 15:45 Consult Psychiatry Routine Ordered Studies 08/23/21 15:01 CT angio head w con Stat CT angio neck with con Stat CT head/brain wo con Stat 08/24/21 13:41 MR brain wo con Routine Hospital Course (1) TIA (transient ischemic attack): (2) CADASIL (cerebral autosomal dominant arteriopathy with subcortical infarcts and leukoencephalopathy): (3) Fall: 65-year-old female with PMH of mis-diagnosis of MS/treatment for it x15 years until 3 years ago when she was diagnosed with CADASIL, recurrent TIA every 4 to 6-month [last one 3 to 4 months ago per her daughter] due to CADASIL, HTN, ambulatory dysfunction, recurrent UTIs, hypothyroidism, spinal stenosis presented 08/23 by ambulance for evaluation of weakness and fall. Per her daughter, her baseline is mildly demented, moderately independent, able to get around mostly. She has continence issues since 10 years. Patient has baseline weakness from underlying CADASIL and daughter felt like her weakness was worse than baseline. She is being managed for the following: #. Metabolic encephalopathy #. Recurrent TIA/possible current TIA secondary to cerebral autosomal dominant arteriopathy with subcortical infarcts and leukoencephalopathy [CADASIL] #. UTI #. 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 Continue with ceftriaxone 08/23, stop after tomorrow's dose 08/24 MRI brain: Punctate focus of restricted diffusion identified in the left posterior frontal cortex, likely representing a tiny acute or subacute infarct. Was treated for possible MS for 15 years until 3 years ago when she was diagnosed with CADASIL -has recurrent TIA every 4 to 6 months per her daughter. Admitting Head CT shows chronic changes. Admitting head and neck CTA shows high-grade stenosis of the P2 segment left posterior cerebral artery with moderate stenosis on the right, atherosclerotic plaque of the left carotid bulb results in less than 50% luminal narrowing Neurology on board: Continue with aspirin, stop smoking. Appreciate neurology input and recommendation Patient is started on aspirin and home atorvastatin increased to 80 mg. Continue supportive care, neurochecks. Stop Rocephin after 08/26 dose. Clinically patient seemed more stable and has improved significantly today. Denies any significant symptoms today and feels that she is at her baseline Remains stable and will be discharged to [facility] this afternoon #. Ambulatory dysfunction Due to incurable neurological condition at her baseline PT/OT, will need placement Recently worsened from her baseline Has had a fall this morning when she was trying to come out of bed and landed on her bottom without any significant injury She denies any warning symptoms before the fall but her blood pressure was noted to be high at systolic 180 Blood pressure remains stable #. HTN (hypertension): -BP controlled, continue metoprolol #. DVT prophylaxis: Subcu Lovenox Disposition: PT/OT recommending SNF. Patient improved significantly today, can be DC'd when placement available unless no new issues arises in the interim. Per employment case manager, patient will likely go to [facility] today 08/24 conversation with the daughter over the phone (Chantel [phone]) to get information about her mother and discussed the plan of care. She voiced understanding and was agreeable. 08/25 conversation with the daughter over the phone, agreed psychiatric evaluation while inpatient. Updated, voiced understanding and was agreeable to plan of care. Awaiting acceptance from [facility]-discharged to [facility] this afternoon Total Time Total Time Spent Total Time Spent (In Minutes): 35 minutes Discharge Plan Discharge Items Patient Disposition: Transfer Inpatient Rehab Fac Reason For Visit: UTI Discharge Diagnosis: CADASIL-cerebral autosomal dominant arteriopathy with subcortical infarcts and leukoencephalopathy, ambulatory dysfunction, hypertension Condition on Discharge: Fair Activity: As commented below Activity Comment: Will need to continue PT and OT Non-emergency contact: Primary Care Provider Call non-emergency contact if: you have any medication questions and your symptoms worsen Follow-up/Referrals: Yohannes Preciado [Primary Care Provider] - (Please make an appointment with your primary care provider within 7 days following discharge from the facility) Diet: Heart Healthy Addtl Attending Provider Instructions: Please take precautions to avoid fall Keep appointment with your outpatient neurologist Pending Studies at Discharge: No Stand-Alone Forms: My [facility] Skilled Items Patient informed of condition?: Yes DNR: No Discharge Level of Care: Acute rehab Communicable Disease: No Discharge Prognosis: Stable Lines: None Urinary Catheter: No Medications and DC Order Prescriptions: New atorvastatin 40 mg Tablet 80 mg PO HS 30 Days Qty: 60 RF: 0 aspirin 81 mg Tablet,Delayed Release (Dr/Ec) 81 mg PO DAILY 30 Days Qty: 30 RF: 0 Continued amitriptyline 50 mg tablet 50 mg PO HS RF: 0 amantadine HCl 100 mg capsule 100 mg PO DAILY RF: 0 metoprolol succinate 25 mg tablet extended release 24 hr 25 mg PO DAILY RF: 0 bupropion HCl 150 mg tablet extended release 24 hr 150 mg PO DAILY RF: 0 duloxetine 60 mg capsule,delayed release(DR/EC) 60 mg PO DAILY RF: 0 cholecalciferol (vitamin D3) 125 mcg (5,000 unit) capsule 125 mcg PO DAILY RF: 0 magnesium oxide 500 mg Capsule 500 mg PO DAILY RF: 0 Discontinued atorvastatin 10 mg tablet 10 mg PO HS RF: 0 Discharge Orders: Discharge Order (Routine); Ordered 08/28/21 Ordered By: Latrell Hines Admission Data Admit Date/Time: 08/23/21 18:08 Attending Provider: Latrell Hines Admit Provider: Breonna Soto Primary Care Provider: Yohannes Preciado Other Providers: Breonna Soto ; Tyron Webb ; Andres Asencio [facility] ; [facility] ; Kylee Kellogg ; Carolina Zamorano ; Consuelo Moody ; Kingsley López ; Rosalinda Villanueva Other Interventions: Discharge Summary Assessment (RN) Last Done: 08/28/21 11:45
--- NOTE | 2021-09-05 09:41 | Coding Query ---
CODING QUERY To promote full compliance with coding requirements relating to patient care, provider participation is requested in all cases of work checker uncertainty. Please assist us with the question(s) below: Coding Question(s): Patient admitted with facial weakness, right side weakness (more than at baseline). History of CADASIL. Discharge Summary / Hospital Progress note 08/28 mentions 08/24 MRI tiny infarct/subacute stroke. Please check below the phrase that applies to the diagnosis treated during this IP stay. thank you ! JG Hutton [facility] Physician's Response(s): Patient has a possible stroke/infarct POA __x Patient had a TIA Cannot clinically correlate if patient had a stroke or TIA Other: please document: ____Has been documented clearly. Principal Diagnosis: "that condition established after study, to be chiefly responsible for occasioning the admission of the patient to the hospital for care." Co-Existing Principal Diagnosis: "when two or more diagnoses equally meet the criteria for principal diagnosis as determined by the circumstances of admission, diagnostic work up, and/or therapy provided, and the Alphabetic Index, Tabular List, or another coding guideline does not provide sequencing direction, any one of the diagnoses may be sequenced first." "When the physician has documented what appears to be a current diagnosis in the body of the record, but has not included the diagnosis in the final diagnostic statement, the physician should be asked whether the diagnosis should be added." (Source Coding [facility] 2 QTR90. p3-4) PAULINOD
== END 2021-08-28 13:32 | DRG 69 ==
LOC: ED 14:26 → 2W 18:08 → SUATTDRO 18:08 → 2W 19:47